=== PATIENT | female | born 1940 | race Caucasian/White ===

== ENCOUNTER 2016-11-25 10:34 | Outpatient (CLI) | payer MEDICARE, OTHER ==
--- NOTE | 2016-11-25 16:34 | PET ---
PET CT FROM THE SKULL BASE THROUGH MID THIGHS: INDICATION: History of metastatic disk tumor. RADIOPHARMACEUTICAL: 11.24 mCi of F18-FDG IV. TECHNIQUE: PET CT images were obtained from the skull base through the mid thighs following introduction of the radiopharmaceutical IV. CT images were obtained for attenuation correction purposes only. Compari sons are made with the recent PET CT dated 08/19/[address] of the abdomen and pelvis dated . FINDINGS: The biodistribution for the examination appears acceptable. HEAD AND NECK: No head and neck hypermetabolic soft tissue mass or lymphadenopathy is evident. THORAX: The moderate left pleural effusion is stable. There is mild left basilar atelectasis. No hypermeta bolic activity is associated with the pleural effusion. ABDOMEN AND PELVIS: The nonhypermetabolic soft tissue nodule seen within the central mesentery is slightly smaller in si ze, measuring just over 3 cm, with a peak SUV uptake of 2.34 and a mean value of 1.79. The partially calcified soft tissue mass seen within the anterior right pelvis measures 7.37 x 4.57 with a peak uptake of 1.70 and mean uptake of 1.42. No new soft tissue mass is evident. A small am ount of free fluid is seen within the pelvis. There are scattered diverticula involving the colon. There are scattered vascular calcifications. The gallbladder is surgically absent. SKIN AND OSSEOUS STRUCTURES: No hypermetabolic skin or osseous lesion is evident. IMPRESSION: 1. Stable PET evaluation. 2. The nonhypermetabolic soft tissue nodules seen within the central mesentery and within the anter ior right hemipelvis are slightly smaller than on a comparison examination. 3. Stable moderate left pleural effusion. 4. No hypermetabolic skin or osseous lesion identified. POS: [facility]
== END 2016-11-25 10:35 | disposition home or self-care (01) ==
LOC: PET 10:34
PROVIDERS: ATTEND Internal Medicine Hematology & Oncology
DX: R19.00 Intra-abdominal and pelvic swelling, mass and lump, unspecified site (principal); J90 Pleural effusion, not elsewhere classified
CPT/HCPCS: 78815; A9552

== ENCOUNTER 2017-04-09 08:18 | Outpatient (CLI) | payer MEDICARE, OTHER ==
--- NOTE | 2017-04-09 12:15 | PET ---
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 Patient also farrell s a history of left breast cancer, treated in 1996. Exam requested for restaging. Patient is currentl y on chemo pill (Gleevec). TECHNIQUE: PET scanning with CT attenuation correction was performed from the base of the brain through the prox imal thighs following the intravenous administration of 12.6 mCi F18-FDG in the left antecubital latisha a. COMPARISON: PET CT dated 11/25/16. FINDINGS: There is physiologic activity in the GI and tracts, and visualized portions of the brain. No solis hypermetabolism is noted in the neck, chest, abdomen, pelvis, or inguinal regions. No abnorm al FDG localization is seen in the soft tissue nodule in the central mesentery or the partially calci fied soft tissue mass in the anterior right pelvis. No hypermetabolic pulmonary nodules, liver, adrenal, or skeletal lesions are seen. The CT scan used for attenuation correction demonstrates a moderate sized left pleural effusion which has increased in size since the previous study. A tiny amount of free fluid is noted in the pelvis. There is sigmoid diverticulosis. IMPRESSION: 1. No evidence of hypermetabolic lesions. 2. Moderate sized left pleural effusion with interval increase in size since 11/25/16. POS: [facility]
== END 2017-04-09 08:19 | disposition home or self-care (01) ==
LOC: PET 08:18
PROVIDERS: ATTEND Internal Medicine Hematology & Oncology
DX: C49.4 Malignant neoplasm of connective and soft tissue of abdomen (principal); J90 Pleural effusion, not elsewhere classified
CPT/HCPCS: 78815; A9552

== ENCOUNTER 2017-06-24 20:41 | Inpatient (IN) | payer MEDICARE, OTHER ==
[2017-06-24 21:27] LABS: ALT (SGPT) 20 U/L (8-55); AST (SGOT) 28 U/L (5-34); Albumin 4.9 g/dL (3.4-4.8); Alkaline Phosphatase 65 U/L (40-150); Anion Gap 15 mmol/L (10-20); BUN (Urea Nitrogen) 15 mg/dL (9.8-20.1); Bilirubin, Total 0.5 mg/dL (0.2-1.2); CK (CPK) 135 U/L (29-168); Calc. Creatinine Clearance 0 mL/min (70-130); Calcium 10.1 mg/dL (7.8-10.44); Carbon Dioxide 23 mmol/L (23-31); Chloride 104 mmol/L (98-107); Estimated GFR-MDRD 39; Glucose 109 mg/dL (83-110); Potassium 3.5 mmol/L (3.5-5.1); Protein, Total 7.9 g/dL (6.0-8.3); Sodium 138 mmol/L (136-145)
--- NOTE | 2017-06-24 21:31 | RAD ---
PORTABLE FRONTAL CHEST RADIOGRAPH 06/24/17 COMPARISON: 01/22/16 HISTORY: Chest pain. FINDINGS: There is dense pleural and parenchymal opacity within the left lung base, which appears similar when compared to a PET CT performed 04/09/17. Right lung appears clear. No pneumothorax is evident. Heart a nd mediastinal contours are grossly unremarkable, partially obscured by dense opacity in the left bas e. IMPRESSION: Dense pleural and parenchymal opacity in the left lung base suggests nonspecific consolidation/colla pse and left pleural fluid. POS: [facility]
[2017-06-24 21:40] LABS: CKMB 3.9 ng/mL (0-6.6); Hemoglobin 13.7 g/dL (12.0-16.0); Lymphocytes 59 % (21-51); MDiff Complete? YES; Mean Corpuscular HGB CONC 34.8 g/dL (32.0-36.0); Mean Corpuscular Hemoglobin 34.4 pg (27.0-31.0); Mean Corpuscular Volume 98.7 fl (81.0-99.0); Mean Platelet Volume 6.8 fL (7.4-10.4); Monocytes 4 % (0-10); Neutrophil 37 % (42-75); PLT Morphology Comment Appears Adequate; Platelet Count 234 thou/uL (130-400); RBC Distribution Width 12.2 % (11.5-14.5); Red Blood Cell (RBC) Count 3.98 mill/uL (4.20-5.40); Troponin I 0.069 ng/mL (< 0.028); White Blood Cell (WBC) Count 8.3 thou/uL (4.8-10.8)
[2017-06-24] MEDS ORDERED: Ondansetron HCl/PF 4 MG/2 ML Vial IVP PRN (23:47)
[2017-06-24] MEDS ORDERED: Ondansetron ODT 4 MG TAB SL PRN (23:47)
[2017-06-24] MEDS ORDERED: Acetaminophen 325 MG TAB PO PRN (23:47)
[2017-06-25 01:05] LABS: Troponin I 0.111 ng/mL (< 0.028)
[2017-06-25] MEDS ORDERED: Acetaminophen 650 MG Suppository PR PRN (01:59)
[2017-06-25] MEDS ORDERED: Nitroglycerin 0.4 MG TAB (25 Tab Bottle) PO PRN (01:59)
[2017-06-25] MEDS ORDERED: Acetaminophen 325 MG TAB PO PRN (01:59)
[2017-06-25] MEDS ORDERED: Ondansetron HCl/PF 4 MG/2 ML Vial IVP PRN (01:59)
[2017-06-25] MEDS ORDERED: Bisacodyl 5 MG TAB PO PRN (01:59)
--- NOTE | 2017-06-25 03:09 | HP ---
DATE OF ADMISSION: 06/25/2017 PRIMARY CARE PROVIDER: Angelina Navarro M.D. CHIEF COMPLAINT: Chest pain. HISTORY OF PRESENT ILLNESS: Ms. Moise is a pleasant 76-year-old lady, who was seen at [facility] on 06/25/2017. She follows up with Dr. Cerna for irregular heartbeat. She also reports that she had a nuclear stre ss test last fall. She reports that she was having dinner around 6:30 p.m. At that time, she felt a sensation of tightn ess over the back of her right arm. It progressed to sensation of tightness over the right side of h er chest, accompanied by sensation of tightness over the back of her left arm. Subsequently, the hilario st tightness moved to retrosternal region. It lasted a couple of hours. She denies any shortness of breath or lightheadedness. She checked her blood pressures at that time and found that it was high. She also reports that her face became flushed. She denies shortness of breath, lightheadedness, na usea, or vomiting. She reports that she has chronic diarrhea that has not changed recently. She took clonidine for her blood pressure and it continued to be elevated. She came to the emergency room, because she did not have these symptoms before. The chest tightness resolved after she came to the emergency room. She cannot recall any aggravating or relieving factors for the chest tightness. It was nonexertional and nonpleuritic. Blood pressur e improved after she came to the emergency room. REVIEW OF SYSTEMS: All other systems reviewed and found to be negative. 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 PAST SURGICAL HISTORY: Hernia repair, left breast lumpectomy, and cholecystectomy. PSYCHIATRIC HISTORY: Anxiety. FAMILY HISTORY: Significant for heart disease in several family members. SOCIAL HISTORY: Rare alcohol use, no tobacco use or recreational drug use. ALLERGIES: IODINATED CONTRAST. CURRENT MEDICATIONS: Atenolol 25 mg daily, amlodipine 5 mg daily, Gleevec 400 mg daily, clonidine 0. 1 mg as needed, losartan 25 mg daily. PHYSICAL EXAMINATION: GENERAL: Ms. Moise is awake and alert, not in acute distress. VITAL SIGNS: Blood pressure is 132/66 and pulse is 71. She is breathing at rate of 16 and saturatin g 95% on room air. She is afebrile. EYES: No scleral icterus. No conjunctival pallor. ENT: Moist mucosal membranes, no oropharyngeal erythema or exudates. NECK: Supple, nontender, normal range of movement. Trachea is midline. RESPIRATORY: Accessory muscles of breathing are not active. Chest wall movements are symmetric bila terally. LUNGS: Clear to auscultation without wheeze, rhonchi, or crepitations. CARDIOVASCULAR: S1 and S2 are heard, irregular. Peripheral pulses palpable. No carotid bruit, no p ericardial rub. ABDOMEN: Soft, nontender, bowel sounds are heard, no hepatomegaly, no splenomegaly. NEUROLOGIC: Cranial nerves II-XII intact. Deep tendon reflexes are 2+. LYMPHATIC: No cervical lymphadenopathy. PSYCHIATRIC: Normal mood, normal affect, patient is oriented to person, place, and time. LABORATORY DATA: Ms. Moise's labs and investigations were reviewed. I reviewed an electrocardi ogram, which showed normal sinus rhythm with premature atrial complexes and premature ventricular com plexes, no ST changes to suggest an acute coronary syndrome. I also reviewed her chest x-ray, which shows nonspecific consolidation/collapse of the left lower lobe and left-sided pleural effusion. She has normal white count, normal hemoglobin, normal platelet count, elevated creatinine of 1.31, last known creatinine 1.10 on 03/02/2017, but she had elevated creatinine prior to that, elevated albumin of 4.9, otherwise unremarkable comprehensive metabolic profile, normal CK, and indeterminate troponin I of 0.111 at 0013 hours today, trending up from 0.069 at 2101 hours yesterday. ASSESSMENT AND PLAN: Ms. Moise is a pleasant 76-year-old lady, who was seen at [facility] on 06/25/2017. Her problem list includes: 1. Chest pain: She will be admitted to the hospital for further management including telemetry dutch gabriel. We will consult Cardiology Service since she reports that she had a nuclear stress test last fall. We will continue to trend troponins. 2. History of gastrointestinal stromal tumor: Continue Gleevec. 3. Hypertension: Monitor vital signs. Titrate antihypertensives as needed. 4. Chronic renal insufficiency: Stable. Many thanks for allowing me to participate in your patient's care. Please feel free to contact me wi th any questions or concerns. LEVEL OF RISK: High. LEVEL OF COMPLEXITY: High.
[2017-06-25 04:24] LABS: #Eosinphils 0.1 thou/uL (0.0-0.7); #Lymphocytes 1.5 thou/uL (1.20-3.40); #Monocytes 0.4 thou/uL (0.11-0.59); #Neutrophils 2.8 thou/uL (1.40-6.50); %Eosinophils 2.4 % (0.0-10.0); %Lymphocytes 30.6 % (21.0-51.0); %Monocytes 7.4 % (0.0-10.0); %Neutrophils 58.5 % (42.0-75.0); Hemoglobin 11.9 g/dL (12.0-16.0); Mean Corpuscular HGB CONC 34.4 g/dL (32.0-36.0); Mean Corpuscular Hemoglobin 34.4 pg (27.0-31.0); Mean Platelet Volume 6.7 fL (7.4-10.4); Platelet Count 185 thou/uL (130-400); RBC Distribution Width 12.1 % (11.5-14.5); Red Blood Cell (RBC) Count 3.46 mill/uL (4.20-5.40); White Blood Cell (WBC) Count 4.8 thou/uL (4.8-10.8)
[2017-06-25 04:32] LABS: Anion Gap 11 mmol/L (10-20); BUN (Urea Nitrogen) 14 mg/dL (9.8-20.1); Calc. Creatinine Clearance 47 mL/min (70-130); Calcium 8.8 mg/dL (7.8-10.44); Carbon Dioxide 22 mmol/L (23-31); Chloride 109 mmol/L (98-107); Estimated GFR-MDRD 52; Glucose 104 mg/dL (83-110); Potassium 4.2 mmol/L (3.5-5.1); Sodium 138 mmol/L (136-145)
[2017-06-25 04:39] LABS: Troponin I 0.088 ng/mL (< 0.028)
[2017-06-25] MEDS ORDERED: Lorazepam 0.5 MG TAB PO PRN ×2 (08:55→08:59)
[2017-06-25] MEDS ORDERED: Non-Formulary Item 1 EACH (Losartan Potassium [Losartan Potassium] 50 MG) PO SCH (09:00)
[2017-06-25] MEDS ORDERED: Aspirin 325 MG TAB PO SCH (09:00)
[2017-06-25] MEDS ORDERED: Enoxaparin Sodium 40 MG/0.4 ML SYRINGE SC SCH (09:00)
[2017-06-25] MEDS: Aspirin 325 MG TAB PO SCH (10:06)
[2017-06-25] MEDS ORDERED: Enoxaparin Sodium 80 MG/0.8 ML SYRINGE SC SCH (12:30)
[2017-06-25] MEDS ORDERED: Communication Order-Pharmacy FS SCH (13:15)
--- NOTE | 2017-06-25 13:43 | CON ---
DATE OF CONSULTATION: 06/25/2017 REASON FOR CONSULTATION: Increased troponin, non-ST elevation myocardial infarction. HISTORY OF PRESENT ILLNESS: Ms. Moise is a delightful 76-year-old woman. She said she was at h ome feeling okay yesterday when she had the onset of right arm pain. The discomfort later spread acr oss her chest and into the left arm. She came here, she was tachycardic. It looks like she had sinu s tachycardia with frequent PACs. Her troponin levels were mildly elevated as will be outlined below . Her chest discomfort resolved and she is feeling better now. PAST MEDICAL HISTORY: She has a history of coronary artery disease. She had catheterization by Dr. Merrill in 2007 following an abnormal stress test. She had a 50% lesion in the LAD, proximal to mi d. Intravascular ultrasound was done and it did not appear to be flow limiting. The patient has done well since then. The patient's other past history is she has a history of GIST tumor of the small intestine and has un dergone successful therapy and that is currently not active, in remission. She tells me she goes to [facility] for that. She also has a history of "IODINE allergy," but talking to her I am not really sure she is really all ergic as opposed that she had some renal failure after following a contrast exposure. From the sound of it, it sounds like she may have been dehydrated, then got contrast, and then had renal failure, w hich gradually resolved. The patient's current renal function is mildly depressed when she came in, but normal this morning. SOCIAL HISTORY: No alcohol or tobacco. She has a , who is very supportive of her. MEDICATIONS: 1. Clonidine. 2. Atenolol 50 mg a day. 3. Amlodipine 2.5 mg a day. 4. Losartan 100 mg a day. 5. Lorazepam. 6. I believe she is also on a statin. We will need to double check that with her. PHYSICAL EXAMINATION: GENERAL EXAMINATION: She is a pleasant elderly woman in no distress. VITAL SIGNS: Blood pressure 160/70, it was transiently very high last night, and it is 126/66 this m orning; pulse 68 and regular. HEENT: Eyes: Sclerae nonicteric. Mouth: Mucous membranes moist. NECK: Supple, no lymphadenopathy. LUNGS: Clear, no wheezing, rales, or rhonchi. CARDIAC: Normal S1, normal S2. There is no murmur, rub, or gallop. ABDOMEN: Soft, nontender, no hepatosplenomegaly. EXTREMITIES: Warm, dry, no clubbing or cyanosis. There is no edema. Peripheral pulses are intact. SKIN: Warm and dry. LABORATORY AND X-RAY FINDINGS: EKG last night, sinus rhythm with PACs, frequent, some of the beats l ooked like aberrant conduction. Also, PVC noted. Troponin level was increased at peak 0.111, which would be in the abnormal range. There is also a lower level before and after that peak. ASSESSMENT: 1. Coronary artery disease. 2. Non-ST elevation myocardial infarction. 3. "? Iodine allergy" versus adverse response to iodine, I think more likely to be the latter. PLAN: Recommend she undergo cardiac catheterization. Discussed risks of stroke, heart attack, iodin e allergy, loss of blood supply to the leg or kidney, stent thrombosis, stent restenosis. She unders tands and wishes to proceed. As a precaution, we will begin intravenous fluid administration tonight and continue it before and after the procedure and try to minimize contrast exposure in terms of gabo unt of contrast. In view of the increased troponin associated with prolonged episode of angina, I th ink it is appropriate to proceed to catheterization and interventional therapy if needed.
[2017-06-25] MEDS ORDERED: IMATINIB MESYLATE 400 MG PO SCH (17:45)
[2017-06-25] MEDS ORDERED: predniSONE 20 MG TAB PO SCH ×2 (18:00→23:55)
[2017-06-25] MEDS ORDERED: Loperamide HCl 2 MG CAP PO SCH (21:00)
[2017-06-25] MEDS ORDERED: Amlodipine 5 MG TAB PO SCH (21:00)
[2017-06-25] MEDS ORDERED: Atenolol 50 MG TAB PO SCH (21:00)
[2017-06-25] MEDS: Sodium Chloride 0.9% 1,000 ML IV SCH ×2 (21:21→22:10)
[2017-06-26 05:11] LABS: Cardiac Risk 3.8 (Less than 4.5)
[2017-06-26] MEDS: Losartan 25 MG TAB PO SCH ×2 (05:49→05:54)
[2017-06-26] MEDS ORDERED: predniSONE 20 MG TAB PO SCH (06:00)
[2017-06-26] MEDS ORDERED: Diazepam 5 MG TAB PO SCH (07:00)
[2017-06-26] MEDS: Aspirin 325 MG TAB PO SCH (08:01)
[2017-06-26] MEDS ORDERED: Fentanyl 100 MCG/2 ML VIAL ONE (08:06)
[2017-06-26] MEDS ORDERED: Midazolam HCl 2 mg/2 ml Vial ONE (08:07)
[2017-06-26] MEDS ORDERED: Lidocaine 1% (PF) 30 ML VIAL ONE (08:07)
[2017-06-26] MEDS ORDERED: Loperamide HCl 2 MG CAP PO SCH (09:00)
[2017-06-26] MEDS ORDERED: Famotidine 20 MG TAB PO SCH (09:00)
[2017-06-26] MEDS ORDERED: Nitroglycerin 100MG/250ML BOT 250 ML ONE (09:06)
[2017-06-26] MEDS ORDERED: Nitroglycerin 0.4 MG TAB (25 Tab Bottle) SL PRN (09:37)
[2017-06-26] MEDS ORDERED: Acetaminophen/Codeine 30-300mg Tablet PO PRN ×2 (09:37)
[2017-06-26] MEDS ORDERED: traMADol HCl 50 MG TAB PO PRN (09:37)
[2017-06-26] MEDS ORDERED: Sodium Chloride 0.9% 200 ML IV SCH (09:45)
[2017-06-26 12:15] VITALS: BP 186/89; TEMP 97.5
[2017-06-26] MEDS ORDERED: Clopidogrel Bisulfate 300 MG TAB PO SCH (15:15)
--- NOTE | 2017-06-26 16:58 | PRG ---
DATE OF SERVICE: 06/26/2017 SUBJECTIVE: Ms. Moise is doing well. She underwent cardiac catheterization today that revealed the followin. Left main normal. 2. LAD 50%-60% lesion similar to the angiogram done in 2007. 3. Circumflex left dominant. There is a 90% stenosis in the ostium of the second marginal branch. The distal vessels are free of any disease. 4. Right coronary small nondominant vessel. 5. Ejection fraction of 60%. At this time, no intervention was done of the obtuse marginal branch. The stent would probably have to stent back into the main circumflex, which could jeopardize the circumflex vessel itself. At this point, we will try to treat her medically. We have added aspirin 81 mg a day, Plavix 75 mg a day fo r at least 2 months and rosuvastatin 20 mg a day. The patient had indicated she is allergic to IODIN E, but I think this is probably not allergic to iodine and more likely, she had some renal failure wi th contrast exposure previously probably when she was dehydrated. She was hydrated prior to the card iac catheterization and after the catheterization on this occasion. She will be asked to see me in t he office for followup with the above listed medicine changes.
[2017-06-26] MEDS ORDERED: IMATINIB MESYLATE 400 MG PO SCH (17:00)
[2017-06-26] MEDS ORDERED: Rosuvastatin 20 MG TAB PO SCH (21:00)
--- NOTE | 2017-06-27 02:21 | DIS ---
DATE OF ADMISSION: 06/25/2017 DATE OF DISCHARGE: 06/26/2017 DISCHARGE DIAGNOSES: 1. Non-ST elevation myocardial infarction. 2. Chest pain. 3. Gastrointestinal stromal tumor. HOSPITAL COURSE: The patient is a very pleasant 76-year-old female who presented to the hospital wit h some chest discomfort and was found to have some mild elevated troponins. The patient was seen by Cardiology and underwent a cardiac catheterization and no intervention at this time. The patient marcie l be medically managed. She will be discharged home on a few medication adjustments and follow up wi th her PCP and Cardiology as outpatient. PHYSICAL EXAMINATION: VITAL SIGNS: Temperature of 98.0, 76, 12 respirations, oxygen 97, blood pressure is 159/76. GENERAL: She is awake, alert, oriented x3, does not appear in distress. CARDIOVASCULAR: S1, S2 present. No murmurs, rubs or gallops. ABDOMEN: Soft, nontender. Bowel sounds are present x2. EXTREMITIES: No edema. Pedal pulses are present x2. Right groin site appears intact. Pedal pulses are present to her right foot and her left foot. DISCHARGE MEDICATIONS: Are as follows, 1. Aspirin 81 mg daily. 2. Plavix 75 mg daily, which is new. 3. Gleevec 400 mg 1 p.o. q.p.m. 4. Nitroglycerin 0.4 sublingual every 5 minutes p.r.n. 5. Rosuvastatin 20 mg p.o. at bedtime. 6. Atenolol 25 mg at bedtime. 7. Clonidine 0.1 at bedtime p.r.n. 8. Amlodipine 2.5 mg at bedtime. 9. Losartan 100 mg p.o. daily. Again, the patient will follow up with PCP and Cardiology as outpatient.
[2017-06-27] MEDS ORDERED: Clopidogrel Bisulfate 75 MG TAB PO SCH (09:00)
== END 2017-06-26 16:41 | disposition home or self-care (01) | DRG 281 ==
LOC: ERS 20:41 → 2SW 22:52 → OBSVTOIN 06-25 14:05
PROVIDERS: ADMIT Internal Medicine; ATTEND Internal Medicine
PROC: 4A023N7 Measurement of Cardiac Sampling and Pressure, Left Heart, Percutaneous Approach (ICD-10-PCS; principal; 2017-06-26)
PROC: B2111ZZ Fluoroscopy of Multiple Coronary Arteries using Low Osmolar Contrast (ICD-10-PCS; 2017-06-26)
DX: I21.4 Non-ST elevation (NSTEMI) myocardial infarction (principal); C49.A3 Gastrointestinal stromal tumor of small intestine; M19.90 Unspecified osteoarthritis, unspecified site; I12.9 Hypertensive chronic kidney disease with stage 1 through stage 4 chronic kidney disease, or unspecified chronic kidney disease; N18.9 Chronic kidney disease, unspecified; I25.10 Atherosclerotic heart disease of native coronary artery without angina pectoris
CPT/HCPCS: 36415; 71045; 76942; 80048; 80053; 80061; 82553; 84484; 85025; 93005; 93458; 93798; 99152; 99153; A4216; C1769; J1644; J1650; J2001; J2250; J3010; J7506

== ENCOUNTER 2017-11-24 17:29 | Emergency (ER) | payer MEDICARE, OTHER ==
[2017-11-24 18:18] LABS: #Eosinphils 0.1 thou/uL (0.0-0.7); #Monocytes 0.5 thou/uL (0.11-0.59); #Neutrophils 4.1 thou/uL (1.40-6.50); %Basophils 0.6 % (0.0-1.0); %Lymphocytes 29.1 % (21.0-51.0); %Monocytes 7.6 % (0.0-10.0); %Neutrophils 60.7 % (42.0-75.0); Mean Corpuscular HGB CONC 33.2 g/dL (32.0-36.0); Mean Corpuscular Hemoglobin 33.6 pg (27.0-31.0); Platelet Count 255 thou/uL (130-400); RBC Distribution Width 11.8 % (11.5-14.5); Red Blood Cell (RBC) Count 3.56 mill/uL (4.20-5.40); White Blood Cell (WBC) Count 6.8 thou/uL (4.8-10.8)
[2017-11-24 18:41] LABS: ALT (SGPT) 14 U/L (8-55); AST (SGOT) 21 U/L (5-34); Albumin 4.5 g/dL (3.4-4.8); Alkaline Phosphatase 59 U/L (40-150); Anion Gap 13 mmol/L (10-20); BUN (Urea Nitrogen) 10 mg/dL (9.8-20.1); Bilirubin, Total 0.5 mg/dL (0.2-1.2); CK (CPK) 121 U/L (29-168); Calc. Creatinine Clearance 0 mL/min (70-130); Calcium 9.5 mg/dL (7.8-10.44); Carbon Dioxide 22 mmol/L (23-31); Chloride 105 mmol/L (98-107); Estimated GFR-MDRD 38; Globulin 2.9 g/dL (2.4-3.5); Glucose 103 mg/dL (83-110); Potassium 3.5 mmol/L (3.5-5.1); Protein, Total 7.4 g/dL (6.0-8.3); Sodium 136 mmol/L (136-145)
[2017-11-24 18:47] LABS: CKMB 3.1 ng/mL (0-6.6); Troponin I Less than 0.010 ng/mL (< 0.028)
[2017-11-24 19:23] LABS: Bilirubin Negative (Negative); Blood, Urine Negative (Negative); Clarity CLEAR (Clear); Glucose, Urine (Dipstick) Negative (Negative); Leukocyte Negative (Negative); Nitrite Negative (Negative); Protein, Urine (Dipstick) Negative (Neg-Trace); Specific Gravity, Urine 1.005 (1.002-1.036); Urobilinogen 0.2 mg/dL (0.2-1.0); pH, Urine 5.5 (5.0-9.0)
--- NOTE | 2017-11-24 19:37 | CT ---
CHEST CT NONCONTRAST 11/24/17 INDICATION: Abnormal radiographic opacification. History of shortness of breath. Reference made to preceding chest radiograph, same date. FINDINGS: There is a large volume left pleural effusion with adjacent consolidation of the compressed left pulm onary parenchyma which may be on the basis of compressive atelectasis and/or component of pneumonia. There is subpleural bands evident within the right lung as well as punctate subpleural nodularity, n onspecific. There is no pneumothorax. Regional soft tissues including vasculature and lymph nodes are limited in assessment by noncontrast technique. There is prominent vascular calcification at the lev el of the aortic arch, in addition to scattered areas of vascular disease. IMPRESSION: Large left pleural effusion with adjacent consolidation of the left pulmonary parenchyma. Subpleural bands and punctate nodularity present within the right lung. Recommend pulmonary medicine consultation for further care. POS: [facility]
== END 2017-11-24 20:27 | disposition home or self-care (01) ==
LOC: ERS 17:29
DX: J90 Pleural effusion, not elsewhere classified (principal); I10 Essential (primary) hypertension; F41.9 Anxiety disorder, unspecified; Z79.899 Other long term (current) drug therapy
CPT/HCPCS: 71250; 80053; 81003; 82553; 83880; 84484; 85025; 93005

== ENCOUNTER 2017-11-26 07:38 | Day surgery (SDC) | payer MEDICARE, OTHER ==
--- NOTE | 2017-11-26 12:03 | OP ---
DATE OF PROCEDURE: 11/26/2017 Ms. Moise is a 77-year-old female who has been followed for pleural effusion, felt to be related to Gleevec. She presented with more shortness of breath in the office. PHYSICAL EXAMINATION: GENERAL: On exam, she was in no distress. VITAL SIGNS: Heart rate is in the 70s, respiratory rate was 18, oximetry is 96 on room air. LUNGS: She had absent breath sounds assisted up on the left. HEART: Regular rhythm. ABDOMEN: Soft. EXTREMITIES: Without asymmetry. IMAGING: Chest radiograph showed an increased pleural effusion compared to her last film. IMPRESSION AND PLAN: Left pleural effusion, possibly related to Gleevec, but it is probably time to do a thoracentesis. She agreed with the procedure. The risks of bleeding, infection, lung collapse were explained to the patient. PROCEDURE: The patient was placed in sitting position. Left posterior hemithorax was prepped with c hlorhexidine. Five mL of lidocaine was used to anesthetize the skin and the pleura. A small incision was made with a #11 blade. A [id number] 8 Bhutanese catheter was inserted in the pleural space and 1300 mL of clear yellow pleural fluid was evacuated. It will be sent for the appro priate studies. She tolerated the procedure well. She was observed for an hour and is being dischar [facility] home.
[2017-11-26 13:44] LABS: BF Color Yellow; BF RBC Count - Manual 220 /cumm; BF WBC/Nonhematics Ct. - Manua 129 /cumm; Body Fluid Source PLEURAL FLUID; Clarity Hazy (Clear); Tube # EDTA
[2017-11-26 13:54] LABS: BF Segmented Neutrophils 19 %; Cell Count Non Hematic 69 %; Lymphocytes 12 %
== END 2017-11-26 11:38 | disposition home or self-care (01) ==
LOC: SDC/OP 07:38
PROVIDERS: ATTEND Internal Medicine Critical Care Medicine
PROC: 0W9B3ZZ Drainage of Left Pleural Cavity, Percutaneous Approach (ICD-10-PCS; principal; 2017-11-26)
DX: J90 Pleural effusion, not elsewhere classified (principal); Z79.899 Other long term (current) drug therapy; Z91.041 Radiographic dye allergy status
CPT/HCPCS: 32554; 82945; 83615; 84157; 85060; 87070; 87205; 88112; 88305; 89051; J1642

== ENCOUNTER 2017-12-22 12:39 | Outpatient (CLI) | payer MEDICARE, OTHER ==
--- NOTE | 2017-12-22 14:10 | RAD ---
CHEST TWO VIEWS: HISTORY: Dyspnea. COMPARISON: Chest CT from 11/24/2017. Chest x-ray from 06/24/2017. FINDINGS: A single view of the chest shows a normal sized cardiomediastinal silhouette. There is moderate left pleural effusion. Adjacent atelectasis is seen. The fluid has increased compared to the chest x-ra y but is stable compared to the chest CT. IMPRESSION: Stable moderate to large left pleural effusion. POS: [facility]
== END 2017-12-22 12:40 | disposition home or self-care (01) ==
LOC: RAD 12:39
PROVIDERS: ATTEND Internal Medicine Critical Care Medicine
DX: R06.00 Dyspnea, unspecified (principal); J90 Pleural effusion, not elsewhere classified
CPT/HCPCS: 71046

== ENCOUNTER 2017-12-29 11:35 | Outpatient (CLI) | payer MEDICARE, OTHER ==
--- NOTE | 2017-12-29 15:56 | PET ---
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 Patient also a history of left breast cancer, treated in 1996. Patient is currently on a chemo pill (Gleevec). Exam is requested for restaging. TECHNIQUE: PET scanning with CT attenuation correction is performed from the base of the brain through the proxi mal thighs following the intravenous administration of 9.3 mCi F18-FDG in the right hand. Imaging was performed after an uptake interval of 55 minutes. COMPARISON: PET CT of 04/09/17. FINDINGS: There is mildly increased FDG localization in the partially calcified soft tissue mass in the right l ower abdominal/upper pelvic mass with a SUV of 2.6. The partially calcified mass in the lower anterio r pelvis demonstrates no hypermetabolic activity (SUV 1.6). No solis hypermetabolism is noted in the neck, chest, abdomen, pelvis, or inguinal regions. No hyperm etabolic pulmonary nodules, liver, adrenal, or skeletal lesions are seen. There is physiologic activity in the GI and tracts, and the visualized portions of the brain. There has been interval increase in size of the left pleural effusion since the previous study. Sigmo id diverticulosis is again seen. No right pleural effusion or ascites seen. IMPRESSION: 1. Interval increase in size of the left pleural effusion since 04/09/17. 2. Mild hypermetabolic activity in the lower abdominal/upper pelvic mass, new since 04/09/17. POS: [facility]
== END 2017-12-29 11:36 | disposition home or self-care (01) ==
LOC: PET 11:35
PROVIDERS: ATTEND Internal Medicine Hematology & Oncology
DX: C49.A0 Gastrointestinal stromal tumor, unspecified site (principal); R19.00 Intra-abdominal and pelvic swelling, mass and lump, unspecified site; C79.9 Secondary malignant neoplasm of unspecified site; J90 Pleural effusion, not elsewhere classified
CPT/HCPCS: 78815; A9552

== ENCOUNTER 2018-01-05 09:55 | Outpatient (CLI) | payer MEDICARE, OTHER ==
--- NOTE | 2018-01-05 10:53 | RAD ---
TWO VIEW CHEST: History: Dyspnea. Comparison: 12-22-17 FINDINGS: Large left pleural effusion is again seen, similar in size to the prior study. Right lung remains aer ated and clear. Vascular markings within normal range and stable. Heart size appears mildly prominent and stable. Osseous structures unremarkable. IMPRESSION: Large left pleural effusion again noted. No evidence of significant change from 12-22-17. POS: [facility]
== END 2018-01-05 09:56 | disposition home or self-care (01) ==
LOC: RAD 09:55
PROVIDERS: ATTEND Internal Medicine Critical Care Medicine
DX: R06.00 Dyspnea, unspecified (principal); J90 Pleural effusion, not elsewhere classified
CPT/HCPCS: 71046

== ENCOUNTER 2018-01-20 13:47 | Outpatient (CLI) | payer MEDICARE, OTHER ==
[2018-01-20 14:59] LABS: Hemoglobin 10.9 g/dL (12.0-16.0); Mean Corpuscular HGB CONC 33.2 g/dL (32.0-36.0); Mean Corpuscular Hemoglobin 33.4 pg (27.0-31.0); Mean Platelet Volume 6.5 fL (7.4-10.4); Platelet Count 240 thou/uL (130-400); RBC Distribution Width 12.5 % (11.5-14.5); Red Blood Cell (RBC) Count 3.28 mill/uL (4.20-5.40); White Blood Cell (WBC) Count 5.2 thou/uL (4.8-10.8)
[2018-01-20 15:28] LABS: Anion Gap 11 mmol/L (10-20); BUN (Urea Nitrogen) 15 mg/dL (9.8-20.1); Calc. Creatinine Clearance 0 mL/min (70-130); Calcium 8.9 mg/dL (7.8-10.44); Carbon Dioxide 25 mmol/L (23-31); Chloride 100 mmol/L (98-107); Estimated GFR-MDRD 45; Glucose 97 mg/dL (83-110); Potassium 4.1 mmol/L (3.5-5.1); Sodium 132 mmol/L (136-145)
--- NOTE | 2018-01-20 20:13 | EKG ---
Test Reason : Blood Pressure : / mmHG Vent. Rate : 075 BPM Atrial Rate : 075 BPM P-R Int : 136 ms QRS Dur : 076 ms QT Int : 360 ms P-R-T Axes : 053 048 -31 degrees QTc Int : 402 ms Normal sinus rhythm Nonspecific T wave abnormality Abnormal ECG When compared with ECG of 24-NOV-2017 17:55, Nonspecific T wave abnormality, worse in Inferior leads Nonspecific T wave abnormality now evident in Lateral leads Confirmed by COURTNEY CUNNINGHAM, SClaudia ([id number]) on 01/20/2018 8:12:53 PM Referred By: GALILEO Confirmed By:DR. Saniya VALDEZ MD
== END 2018-01-20 13:48 | disposition home or self-care (01) ==
LOC: LABBT 13:47
PROVIDERS: ATTEND Thoracic Surgery (Cardiothoracic Vascular Surgery)
DX: Z01.818 Encounter for other preprocedural examination (principal); C49.A2 Gastrointestinal stromal tumor of stomach; K80.20 Calculus of gallbladder without cholecystitis without obstruction
CPT/HCPCS: 80048; 85027; 93005; 93010

== ENCOUNTER 2018-01-21 07:35 | Inpatient (IN) | payer MEDICARE, OTHER ==
[2018-01-21] MEDS ORDERED: CEFAZOLIN 2 GM/50 ML BAG ONE (08:46)
[2018-01-21] MEDS ORDERED: Midazolam HCl 2 mg/2 ml Vial ONE (09:53)
[2018-01-21] MEDS ORDERED: Fentanyl 100 MCG/2 ML VIAL ONE ×5 (10:16→13:11)
[2018-01-21] MEDS ORDERED: Talc Infusion/Pleuradesis 4 GM BOT ONE (10:30)
[2018-01-21] MEDS ORDERED: Lidocaine 1% PF 5 ML VIAL ONE (11:51)
[2018-01-21] MEDS ORDERED: Dexamethasone 20 MG/5 ML VIAL ONE (11:51)
[2018-01-21] MEDS ORDERED: Glycopyrrolate 0.2 MG/ML 5 ML SYRINGE ONE (11:51)
[2018-01-21] MEDS ORDERED: PROPOFOL 200 MG/20 ML VIAL ONE (11:51)
[2018-01-21] MEDS ORDERED: PHENYLEPHRINE-NS 100 MCG/ML 10 ML SYRINGE ONE (11:51)
[2018-01-21] MEDS ORDERED: Ondansetron PF 4 MG/2 ML Vial ONE (11:51)
[2018-01-21] MEDS ORDERED: ePHEDrine/0.9% NaCl/PF SYRINGE 50 mg/10 ml ONE (11:51)
[2018-01-21] MEDS ORDERED: Bupivacaine HCl 0.5%/Epinephrine 1:200,000/PF 30 ml Vial ONE (12:07)
[2018-01-21] MEDS ORDERED: Ondansetron HCl/PF 4 MG/2 ML Vial IVP PRN (12:25)
[2018-01-21] MEDS ORDERED: Promethazine HCl 25 MG/ML VIAL SLOW IVP PRN (12:25)
[2018-01-21] MEDS ORDERED: Promethazine HCl 25 MG/ML VIAL IM PRN ×2 (12:25→14:41)
--- NOTE | 2018-01-21 13:51 | RAD ---
SINGLE VIEW CHEST: Date: 01/21/18 COMPARISON: 01/05/18. HISTORY: Status post thoracotomy. FINDINGS: Single view of the chest shows an enlarged cardiomediastinal silhouette. Two left-sided chest tubes a re seen. The previously seen large left pleural effusion has been evacuated. No pneumothorax is seen. IMPRESSION: Status post left thoracotomy without evidence of complication. POS: [facility]
[2018-01-21] MEDS ORDERED: Nitroglycerin 0.4 MG TAB (25 Tab Bottle) SL PRN (14:41)
[2018-01-21] MEDS ORDERED: Lorazepam 0.5 MG TAB PO PRN (14:41)
[2018-01-21] MEDS ORDERED: Clopidogrel Bisulfate 75 MG TAB PO SCH (14:41)
[2018-01-21] MEDS ORDERED: Loperamide HCl 2 MG CAP PO PRN (14:53)
[2018-01-21] MEDS: CEFAZOLIN 2 GM/50 ML BAG IVPB SCH (15:06)
[2018-01-21] MEDS ORDERED: HYDROcodone/Acetaminophen 5/325 mg Tablet ONE (15:20)
[2018-01-21] MEDS: HYDROcodone/Acetaminophen 5/325 mg Tablet PO PRN ×2 (15:21→19:59)
[2018-01-21] MEDS: Sodium Chloride 0.9% 1,000 ML IV SCH (15:23)
--- NOTE | 2018-01-21 19:27 | HP ---
HISTORY OF PRESENT ILLNESS: Ms. Moise is a 77-year-old woman with a history of breast cancer. She recently underwent a left thoracentesis and evacuation of 1300 mL of clear yellow fluid. Pathology on the fluid showed only reactive mesothelial cells and macrophages. She has been on Gleevec and a concern was this was a Gleevec associated pleural effusion, but there is also a concern that this could be malignant. I have been asked to see her for thoracoscopy, pleural biopsies, and pleurodesis. PAST MEDICAL HISTORY: 1. Remote history of breast cancer 2. History of GIST tumor of the small intestine on [place] 3. Coronary artery disease. 4. Hypertension. 5. Plantar fasciitis. 6. Arthritis. 7. Gout. PAST SURGICAL HISTORY: 1. Hernia repair in 1957. 2. Left and right lumpectomy in 1975. 3. Rectal muscle repair in 2007. 4. Cholecystectomy. ALLERGIES: IODINE. SOCIAL HISTORY: She is a nonsmoker. She occasionally uses alcohol. PHYSICAL EXAMINATION: GENERAL: This is a diminutive woman without complaint other than being short of breath. NECK: Supple without bruit. CHEST: Clear bilaterally with depressed left sided breath sounds. HEART: Rhythm is regular without murmur. ABDOMEN: Soft and nontender. EXTREMITIES: No edema. ASSESSMENT AND PLAN: Recurrent large left pleural effusion, for thoracoscopy, pleurodesis, and drainage. Job ID: [id number] MTDD
[2018-01-21 19:41] VITALS: BMI 25.0
--- NOTE | 2018-01-21 19:46 | OP ---
DATE OF PROCEDURE: 01/21/2018 PREOPERATIVE DIAGNOSIS: Recurrent left pleural effusion in the setting of history of breast cancer and Gleevec use for gastrointestinal stromal tumor. PROCEDURE PERFORMED: Left thoracoscopy with pleural biopsy, evacuation of pleural effusion, mechanical and chemical pleurodesis, and drainage. DRAIN: 24-Uzbek chest tube x2. SPECIMENS: Left pleural biopsy x2. DESCRIPTION OF PROCEDURE: After consent was obtained, the patient was brought to the operating room and placed in supine position on the operating table. Appropriate central line was placed and general endotracheal anesthesia induced. The patient was placed in right lateral decubitus position. Joints were appropriately padded. SCDs were used. Left chest wall was prepped and draped in usual sterile fashion. Skin incision for 2 ports was made, one in the anterior axillary line and one just below the scapular tip. Thoracoscope was inserted and 2200 mL of clear straw-colored fluid was evacuated. The pleura was fairly normal in appearance. It was slick, but no nodular areas. 2 random areas of pleural biopsy were then taken with approximately a centimeter of pleura taken at each part. Pleura was then mechanically abraded throughout. Talc was then infused within the incision. Two 24-Uzbek chest tubes were placed to the anterior port and secured to the skin. Posterior port was then closed in layers. 0.5% Marcaine was used to block her ribs and a field block around the chest tubes. The patient tolerated the procedure well, was awakened, extubated, and transferred to the recovery room in stable condition. Job ID: [id number]
[2018-01-21] MEDS: Amlodipine 5 MG TAB PO SCH (19:57)
[2018-01-21] MEDS: Atenolol 50 MG TAB PO SCH (19:58)
[2018-01-21] MEDS: Rosuvastatin 20 MG TAB PO SCH (19:59)
[2018-01-21] MEDS ORDERED: Lorazepam 1 MG TAB PO PRN (23:15)
[2018-01-22] MEDS: HYDROcodone/Acetaminophen 5/325 mg Tablet PO PRN ×3 (00:10→20:04)
[2018-01-22] MEDS: CEFAZOLIN 2 GM/50 ML BAG IVPB SCH ×2 (00:11→07:51)
[2018-01-22] MEDS: Sodium Chloride 0.9% 1,000 ML IV SCH ×3 (01:23→20:03)
[2018-01-22 06:07] LABS: #Basophils 0.1 thou/uL (0.0-0.2); #Lymphocytes 0.5 thou/uL (1.20-3.40); #Monocytes 0.5 thou/uL (0.11-0.59); #Neutrophils 9.5 thou/uL (1.40-6.50); %Basophils 0.6 % (0.0-1.0); %Eosinophils 0.1 % (0.0-10.0); %Lymphocytes 5.1 % (21.0-51.0); %Monocytes 4.6 % (0.0-10.0); %Neutrophils 89.7 % (42.0-75.0); Mean Corpuscular HGB CONC 33.4 g/dL (32.0-36.0); Mean Corpuscular Hemoglobin 33.8 pg (27.0-31.0); Mean Platelet Volume 6.7 fL (7.4-10.4); Platelet Count 221 thou/uL (130-400); RBC Distribution Width 12.4 % (11.5-14.5); Red Blood Cell (RBC) Count 3.55 mill/uL (4.20-5.40); White Blood Cell (WBC) Count 10.5 thou/uL (4.8-10.8)
[2018-01-22 06:21] LABS: Anion Gap 7 mmol/L (10-20); BUN (Urea Nitrogen) 10 mg/dL (9.8-20.1); Calc. Creatinine Clearance 58 mL/min (70-130); Calcium 8.3 mg/dL (7.8-10.44); Carbon Dioxide 23 mmol/L (23-31); Chloride 104 mmol/L (98-107); Estimated GFR-MDRD 68; Glucose 148 mg/dL (83-110); Sodium 130 mmol/L (136-145)
[2018-01-22] MEDS: Losartan 25 MG TAB PO SCH (07:50)
[2018-01-22] MEDS: Furosemide 20 MG TAB PO SCH (07:51)
--- NOTE | 2018-01-22 08:12 | RAD ---
CHEST 1 VIEW: INDICATION: History of thoracotomy. COMPARISON: Prior study dated 01/21/2018. IMPRESSION: There is worsening opacity within the left lung suspicious for either edema or pneumonia. Left-sided thoracostomy tube is unchanged. Small left basilar pneumothorax remains. Subcutaneous emphysema al yaa the left chest wall is present. Right lung is clear. Heart size is normal. No acute osseous ab normality is evident. Continued followup is recommended. POS: [facility]
--- NOTE | 2018-01-22 14:03 | PRG ---
DATE OF SERVICE: 01/22/2018 SUBJECTIVE: Nadia Moise came in yesterday for thoracoscopy with biopsies and chest tube placement, which was done successfully. She has no complaints. To refresh, we have been following the pleural effusion. It was felt to have been related to Gleevec, but her effusion has been increasing and she has been more and more symptomatic, so we are hoping that this procedure will eliminate this side effect. We will also rule out recurrence of her breast cancer in the pleural space with biopsies. OBJECTIVE: GENERAL: She is doing well today. VITAL SIGNS: She is afebrile. Heart rate 76, respiratory rate 15, oxygen saturation is 91% on 2 liters, and blood pressure 160/84. LUNGS: Decreased breath sounds on the left. HEART: Regular rhythm. ABDOMEN: Soft and nontender. DIAGNOSTIC DATA: Chest radiograph shows haziness at the left base, which I suspect is just postop atelectasis and interstitial edema related to re-expansion. She does have cough but she had the lower lobe compressed for quite some time, so I suspect this will gradually clear. I really doubt she has a pneumonia. We will suppress her cough with some Tessalon Perles. We will continue to follow. She will continue Gleevec once she leaves. 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 Job ID: [id number]
[2018-01-22] MEDS: Benzonatate 100 MG CAP PO SCH ×2 (14:53→21:13)
[2018-01-22] MEDS: Lorazepam 1 MG TAB PO PRN (14:53)
[2018-01-22] MEDS: IMATINIB MESYLATE 400 MG PO SCH ×2 (18:26)
[2018-01-22] MEDS: Atenolol 50 MG TAB PO SCH (20:06)
[2018-01-22] MEDS: Rosuvastatin 20 MG TAB PO SCH (20:06)
[2018-01-22] MEDS: Amlodipine 5 MG TAB PO SCH (20:07)
[2018-01-23] MEDS: Sodium Chloride 0.9% 1,000 ML IV SCH ×2 (06:21→14:27)
--- NOTE | 2018-01-23 07:59 | RAD ---
CHEST 1 VIEW: Date: 01/23/18 INDICATION: Status post thoracotomy. IMPRESSION: Left-sided perihilar opacities have somewhat improved, possibly reflecting resolving edema, or a slig htly improving pneumonia. There is increased opacity within the right lower lobe, consisting likely o f subsegmental atelectasis. A small right pleural effusion cannot be entirely excluded. Left-sided th oracostomy tubes are unchanged. Subcutaneous emphysema overlying the left chest wall is stable. No pn eumothorax is evident. Continued follow-up is recommended. POS: [facility]
[2018-01-23] MEDS: HYDROcodone/Acetaminophen 5/325 mg Tablet PO PRN ×2 (08:27→22:04)
[2018-01-23] MEDS: Benzonatate 100 MG CAP PO SCH ×3 (08:28→22:01)
[2018-01-23] MEDS: Furosemide 20 MG TAB PO SCH (08:30)
[2018-01-23] MEDS: Losartan 25 MG TAB PO SCH (08:31)
--- NOTE | 2018-01-23 15:09 | PRG ---
DATE OF SERVICE: 01/23/2018 SUBJECTIVE: The patient seems to be doing reasonably well. She has a chest tube in place on the left. OBJECTIVE: VITAL SIGNS: On exam, temperature 98.1, pulse 80, respirations 16, O2 saturation 93%, and blood pressure 108/66. Of note, her chest tube does have a leak. HEENT: Unremarkable. NECK: No JVD. LUNGS: She has diminished breath sounds in the left base compared to the right. CARDIAC: S1 and S2. Regular. ABDOMEN: Soft. EXTREMITIES: No edema. LABORATORY DATA: Her chest x-ray demonstrates what appears to be lack of expansion in the left lower lobe and some subcutaneous emphysema in that area. It may be that the chest tubes have pulled back to where one of the ports is outside the skin, although that is a little difficult to tell on the x-ray. ASSESSMENT: Pleural effusion. PLAN: Continuing thoracostomy tube drainage. Job ID: [id number]
[2018-01-23] MEDS: Lorazepam 1 MG TAB PO PRN (16:24)
[2018-01-23] MEDS: IMATINIB MESYLATE 400 MG PO SCH (16:25)
[2018-01-23] MEDS: Amlodipine 5 MG TAB PO SCH (21:57)
[2018-01-23] MEDS: Atenolol 50 MG TAB PO SCH (21:59)
[2018-01-23] MEDS: Rosuvastatin 20 MG TAB PO SCH (22:00)
[2018-01-24] MEDS: Sodium Chloride 0.9% 1,000 ML IV SCH ×3 (02:51→23:37)
[2018-01-24] MEDS: HYDROcodone/Acetaminophen 5/325 mg Tablet PO PRN ×2 (06:42→21:52)
[2018-01-24] MEDS: Losartan 25 MG TAB PO SCH (08:47)
[2018-01-24] MEDS: Benzonatate 100 MG CAP PO SCH ×3 (08:47→21:51)
[2018-01-24] MEDS: Furosemide 20 MG TAB PO SCH (08:48)
--- NOTE | 2018-01-24 08:49 | RAD ---
CHEST ONE VIEW: INDICATIONS: History of thoracotomy. COMPARISON: 01/23/2018 FINDINGS/IMPRESSION: There is improvement in there bilateral pleural effusions. There is some improved aeration of both l ungs. Some residual patchy opacities remain within the right lung base and left perihilar region. N o pneumothorax is evident. Subcutaneous emphysema appears to track more so along the left chest wall . Left-sided thoracostomy tubes are unchanged. POS: [facility]
[2018-01-24] MEDS: Ondansetron PF 4 MG/2 ML Vial IVP PRN (11:19)
[2018-01-24] MEDS: IMATINIB MESYLATE 400 MG PO SCH (17:08)
[2018-01-24] MEDS: Amlodipine 5 MG TAB PO SCH (21:49)
[2018-01-24] MEDS: Atenolol 50 MG TAB PO SCH (21:50)
[2018-01-24] MEDS: Rosuvastatin 20 MG TAB PO SCH (21:51)
[2018-01-25] MEDS: Ondansetron PF 4 MG/2 ML Vial IVP PRN ×2 (07:05→15:44)
--- NOTE | 2018-01-25 07:47 | RAD ---
FRONTAL RADIOGRAPH CHEST: DATE: 01/25/2018. COMPARISON: 01/24/2018. HISTORY: Evaluate chest following thoracotomy. FINDINGS: Small volume left-sided subcutaneous emphysema. Persistent pneumothorax noted in left lung base. Tw o stable left-sided chest tubes are noted. Postoperative clips are seen in the left axillary region. Heart and mediastinal contours are stable. IMPRESSION: Stable appearance of the chest as detailed above. Findings suggest a small pneumothorax in the left lung base/costophrenic angle. POS: [facility]
--- NOTE | 2018-01-25 07:49 | PRG ---
DATE OF SERVICE: 01/24/2018 SUBJECTIVE: The patient is doing reasonably well and had no complaints. OBJECTIVE: VITAL SIGNS: Temperature 98.9, pulse 69, respirations 18, saturations 95% on room air, and blood pressure 146/75. HEENT: Unremarkable. NECK: No JVD. CHEST: Diminished breath sounds, left base. Right side, clear. She has a small air leak in her chest tube. CARDIAC: S1 and S2, regular. ABDOMEN: Soft. EXTREMITIES: No edema. ASSESSMENT: Status post left thoracoscopy with chest tube placement. PLAN: Continue thoracostomy tube drainage. Job ID: [id number]
[2018-01-25] MEDS: Sodium Chloride 0.9% 1,000 ML IV SCH ×3 (08:44→19:23)
[2018-01-25] MEDS: Furosemide 20 MG TAB PO SCH (08:45)
[2018-01-25] MEDS: Benzonatate 100 MG CAP PO SCH ×3 (08:45→21:54)
[2018-01-25] MEDS: Losartan 25 MG TAB PO SCH (08:45)
[2018-01-25] MEDS: HYDROcodone/Acetaminophen 5/325 mg Tablet PO PRN (09:36)
[2018-01-25] MEDS ORDERED: Ondansetron ODT 8 MG TAB SL PRN (13:03)
[2018-01-25] MEDS ORDERED: Morphine 4 MG/ML VIAL SLOW IVP PRN (13:04)
[2018-01-25] MEDS ORDERED: Polyethylene Glycol 3350 17 GM Packet PO SCH (13:15)
[2018-01-25] MEDS ORDERED: traMADol HCl 50 MG TAB PO SCH (13:15)
[2018-01-25] MEDS ORDERED: Bisacodyl 5 MG TAB PO SCH (13:15)
--- NOTE | 2018-01-25 14:24 | PRG ---
DATE OF SERVICE: 01/25/2018 SUBJECTIVE: Ms. Moise has only had 90 mL of drainage out in the last 24 hours, 100 mL in previous 24 hours. Surprisingly she has an air leak. Dr. Ruvalcaba re-taped her chest wall this morning. She tells me that she still has an air leak. OBJECTIVE: VITAL SIGNS: She is afebrile, heart rate is 80, respiratory rate 18 , oximetry is 96% on room air, and blood pressure 138/78. LUNGS: Clear. Pleural fluid pathology was negative for malignancy. Chest radiograph shows a tiny pneumothorax in the left lung base. IMPRESSION: 1. Air leak? coming from chest wall. 2. Status post pleurodesis. 3. Status post pleural biopsies revealing no pleural malignancy. 4. Recurrent breast cancer, on Gleevec. She is clinically stable. I have encouraged her to ambulate with her . She is complaining of constipation , so I will put in an order for a laxative and MiraLAX. 5. She is also complaining of nausea. I suspect this is the hydrocodone, so I will switch her to Ultram with a p.r.n. morphine dose to see if this works a little better for her. She has a trip planned to [place] in a few weeks. Hopefully, we can get her over this and get her strength up. Job ID: [id number] [facility]
[2018-01-25] MEDS: Ondansetron ODT 8 MG TAB SL SCH ×2 (17:17→20:42)
[2018-01-25] MEDS: traMADol HCl 50 MG TAB PO SCH ×2 (17:19→23:32)
[2018-01-25] MEDS: IMATINIB MESYLATE 400 MG PO SCH (19:22)
[2018-01-25] MEDS ORDERED: Enoxaparin Sodium 40 MG/0.4 ML SYRINGE SC SCH (21:00)
[2018-01-25] MEDS: Atenolol 50 MG TAB PO SCH (21:54)
[2018-01-25] MEDS: Amlodipine 5 MG TAB PO SCH (21:55)
[2018-01-25] MEDS: Rosuvastatin 20 MG TAB PO SCH (21:57)
[2018-01-26] MEDS: Ondansetron PF 4 MG/2 ML Vial IVP PRN (01:03)
[2018-01-26] MEDS: Lorazepam 1 MG TAB PO PRN (03:30)
[2018-01-26] MEDS: Sodium Chloride 0.9% 1,000 ML IV SCH (05:37)
[2018-01-26] MEDS: traMADol HCl 50 MG TAB PO SCH ×2 (07:07→11:32)
[2018-01-26] MEDS: Metoclopramide HCl 10 MG/2 ML VIAL IVP SCH ×2 (07:14→13:44)
[2018-01-26] MEDS: Benzonatate 100 MG CAP PO SCH (08:57)
[2018-01-26] MEDS: Losartan 25 MG TAB PO SCH (08:58)
[2018-01-26] MEDS: Furosemide 20 MG TAB PO SCH (08:58)
[2018-01-26] MEDS: Ondansetron ODT 8 MG TAB SL SCH ×2 (08:59→14:19)
[2018-01-26] MEDS ORDERED: Polyethylene Glycol 3350 17 GM Packet PO SCH (09:00)
--- NOTE | 2018-01-26 10:43 | RAD ---
FRONTAL VIEW CHEST: INDICATIONS: Status post thoracotomy. Small pneumothorax. Followup. COMPARISON: Previous day. FINDINGS: The prior left thoracostomy tube has been removed. There is persistent pleural-based density at the inferior left chest, obscuring the left hemidiaphragm and the left costophrenic sulcus. Soft tissue air along the left body wall is seen. There is persistence of a minimal left basilar pneumothorax, l aterally. Patchy density at the left perihilar region remains. The right lung is clear. The cardia c silhouette is stable. IMPRESSION: Interval removal of left thoracostomy tube. Previously mentioned small left basilar pneumothorax per sists, with an adjacent pleural-based density that may reflect fluid and/or pleural thickening. Cont inued followup is advised. CODE T POS: [facility]
[2018-01-26 11:44] VITALS: BP 130/83; TEMP 97.9
--- NOTE | 2018-01-26 13:30 | PRG ---
DATE OF SERVICE: 01/26/2018 SUBJECTIVE: Nadia Moise did well overnight. Her chest tubes are out. She is in no distress. Her nausea is resolved. I suspect this was related to the hydrocodone. She denies having any chest discomfort. OBJECTIVE: VITAL SIGNS: She is afebrile. Heart rate 80, respiratory rate 16, oximetry is 97 on room air, and blood pressure 130/83. LUNGS: Clear. HEART: Regular rhythm. ABDOMEN: Soft. DIAGNOSTIC DATA: Chest radiograph is unchanged except for the chest tube being out. DISCUSSION AND PLAN: I will see her in followup in a week to 10 days and repeat a chest radiograph. She has a trip to [place] planned for the third week in January, so hopefully, she will be stable to go on her trip, I suspect she will. Job ID: [id number]
== END 2018-01-26 15:30 | disposition home or self-care (01) | DRG 167 ==
LOC: SURG A 07:35 → SURG B 15:39
PROVIDERS: ADMIT Thoracic Surgery (Cardiothoracic Vascular Surgery); ATTEND Thoracic Surgery (Cardiothoracic Vascular Surgery)
PROC: 0B9P4ZX Drainage of Left Pleura, Percutaneous Endoscopic Approach, Diagnostic (ICD-10-PCS; principal; 2018-01-21)
PROC: 0W9B40Z Drainage of Left Pleural Cavity with Drainage Device, Percutaneous Endoscopic Approach (ICD-10-PCS; 2018-01-21)
PROC: 0B9P4ZX Drainage of Left Pleura, Percutaneous Endoscopic Approach, Diagnostic (ICD-10-PCS; 2018-01-21)
DX: J90 Pleural effusion, not elsewhere classified (principal); C79.51 Secondary malignant neoplasm of bone; M10.9 Gout, unspecified; C50.919 Malignant neoplasm of unspecified site of unspecified female breast; I25.10 Atherosclerotic heart disease of native coronary artery without angina pectoris
CPT/HCPCS: 36415; 71045; 80048; 85025; 85027; 88305; 88341; 88342; 93005; 93010; 99214; G0463; G8978-GP-CJ; G8979-GP-CJ; G8980-GP-CJ; J0670; J1100; J1642; J1650; J2001; J2250; J2405; J2704; J2765; J3010

== ENCOUNTER 2018-01-30 11:05 | Emergency (ER) | payer MEDICARE, OTHER ==
--- NOTE | 2018-01-30 12:59 | RAD ---
TWO VIEWS CHEST: HISTORY: Yellow and green discharge from left chest. Shortness of breath. FINDINGS: PA and lateral views of the chest are obtained on 01/30/2018. Comparison is made to a previous exam f rom 01/26/2018. Two views demonstrate surgical clips seen in the left axillary region. Gas is seen in the soft tissu es of the left axillary region. The right hemithorax is unremarkable. Areas of scarring seen in the left lung base and left lower lobe. No definite evidence of acute pneumonia is seen. IMPRESSION: Areas of scarring in the left lung base with some gas seen in the soft tissues of the left chest wall . POS: [facility]
== END 2018-01-30 14:17 | disposition home or self-care (01) ==
LOC: ERS 11:05
DX: Z48.817 Encounter for surgical aftercare following surgery on the skin and subcutaneous tissue (principal); I10 Essential (primary) hypertension; F41.9 Anxiety disorder, unspecified; Z79.899 Other long term (current) drug therapy
CPT/HCPCS: 71046

== ENCOUNTER 2018-02-05 10:28 | Outpatient (CLI) | payer MEDICARE, OTHER ==
--- NOTE | 2018-02-05 12:21 | RAD ---
PA AND LATERAL VIEWS CHEST: Date: 02/05/18 HISTORY: Dyspnea. FINDINGS: Comparison made with exam of 01/30/18. The heart size is stable. Pleural parenchymal changes in the left lung base are again seen. Right antonia g is clear. There are mild degenerative changes in the spine. Interval resolution of subcutaneous emp hysema is seen in the left lateral chest wall. IMPRESSION: Stable chronic changes in the left basilar hemithorax. POS: [facility]
== END 2018-02-05 10:29 | disposition home or self-care (01) ==
LOC: RAD 10:28
PROVIDERS: ATTEND Internal Medicine Critical Care Medicine
DX: R06.00 Dyspnea, unspecified (principal); J98.4 Other disorders of lung
CPT/HCPCS: 71046

== ENCOUNTER 2018-03-02 09:36 | Outpatient (CLI) | payer MEDICARE, OTHER ==
[2018-03-02] MEDS ORDERED: Gadobenate Dimeglumine 529 MG/1 ML (20ML VIAL) ONE (13:05)
--- NOTE | 2018-03-02 16:47 | MRI ---
MRI BRAIN WITH AND WITHOUT CONTRAST: DATE: 03/02/2018. 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 R19.00, intra-abdominal and pelvic swelling, mass and lump, unspecified site. 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 COMPARISON: MRI of brain with and without contrast of 06/04/2016 from [facility]. TECHNIQUE: Multiple sequences obtained in axial, sagittal, and coronal planes; pre and post IV injection of gado linium-based contrast agent: 10 mL of MultiHance. FINDINGS: There is a well-circumscribed, homogeneously moderately enhancing, supratentorial extraaxial intracra nial mass abutting the right dural surface, indenting the brain parenchyma at the junction between th e posterior aspect of the right temporal lobe and the right occipital lobe. It previously measured a pproximately 1.6 x 1.4 x 1.8 cm. It currently measures approximately 2.1 x 1.7 x 2.0 cm. It is hype rintense relative to brain parenchyma and on T2WI and FLAIR. It is isointense relative to brenner matte r on precontrast T1WI. It causes a small amount of vasogenic edema in the adjacent brain parenchyma. The degree of vasogenic edema is either new or has mildly increased since 06/04/2016. There is no abnormal intraaxial mass or abnormal intraaxial enhancement. The degree of chronic ische dexter white matter changes is minimal. No restricted diffusion within the mass or brain parenchyma. V entricles are normal in size and configuration. No midline shift. No extraaxial fluid collection. No evidence of recent intraaxial hemorrhage. IMPRESSION: 1. Supratentorial right posterior meningioma has mildly grown and causes a slightly greater degree o f mild vasogenic edema upon the adjacent brain parenchyma, since the prior MRI of 06/04/2016. 2. Because of the interval growth, continued followup and/or neurosurgical consultation is recommend ed. EMILIANA Vela POS: [facility]
== END 2018-03-02 09:37 | disposition home or self-care (01) ==
LOC: MRI 09:36
PROVIDERS: ATTEND Internal Medicine Hematology & Oncology
DX: D32.0 Benign neoplasm of cerebral meninges (principal); G93.6 Cerebral edema
CPT/HCPCS: 70553; 82565; A9579

== ENCOUNTER 2018-03-03 10:01 | Outpatient (CLI) | payer MEDICARE, OTHER ==
--- NOTE | 2018-03-03 11:01 | RAD ---
TWO VIEWS CHEST: Comparison: 02-05-18 History: Pulmonary embolism. FINDINGS: Two views of the chest shows a normal sized cardiomediastinal silhouette. There appears to be airspac e opacity in the left lower lobe which may represent an infiltrate. A small left pleural effusion may also be present. IMPRESSION: Left lower lobe infiltrate with adjacent pleural effusion. POS: [facility]
== END 2018-03-03 10:02 | disposition home or self-care (01) ==
LOC: RAD 10:01
PROVIDERS: ATTEND Internal Medicine Hematology & Oncology
DX: J90 Pleural effusion, not elsewhere classified (principal); R91.8 Other nonspecific abnormal finding of lung field
CPT/HCPCS: 71046

== ENCOUNTER 2018-04-06 10:41 | Outpatient (CLI) | payer MEDICARE, OTHER ==
--- NOTE | 2018-04-06 11:28 | RAD ---
CHEST TWO VIEWS: Comparison: 03-03-18 History: Dyspnea. FINDINGS: Atherosclerosis of the aorta. Normal cardiac silhouette. The pulmonary vessels and hilum are normal. Persistent blunting of the left costophrenic angle. Chronic changes in the left lower lobe. Stable mi ld thickening of the left major fissure. No pneumothorax or osseous abnormalities. IMPRESSION: No significant interval change. POS: [facility]
== END 2018-04-06 10:42 | disposition home or self-care (01) ==
LOC: RAD 10:41
PROVIDERS: ATTEND Internal Medicine Critical Care Medicine
DX: R06.00 Dyspnea, unspecified (principal)
CPT/HCPCS: 71046

== ENCOUNTER 2018-05-11 12:16 | Outpatient (CLI) | payer MEDICARE, OTHER ==
--- NOTE | 2018-05-11 12:44 | RAD ---
TWO VIEWS CHEST: HISTORY: Dyspnea. FINDINGS: PA and lateral views of the chest are obtained on 05/11/2018. Comparison is made to previous exam fro m 04/06/2018. Two views chest demonstrate mild cardiomegaly. Areas of scarring are seen in the left lung base. Diffuse thoracic spine osteopenia is seen. The lungs are well aerated. No evidence of acute intrathoracic abnormality is seen. IMPRESSION: Left pleural scarring and minimal costophrenic angle blunting. No acute intrathoracic abnormality is seen. POS: [facility]
== END 2018-05-11 12:17 | disposition home or self-care (01) ==
LOC: RAD 12:16
PROVIDERS: ATTEND Internal Medicine Critical Care Medicine
DX: R06.00 Dyspnea, unspecified (principal); J98.4 Other disorders of lung
CPT/HCPCS: 71046

== ENCOUNTER 2018-05-18 04:56 | Outpatient (CLI) | payer MEDICARE, OTHER ==
[2018-05-18 11:32] LABS: Hemoglobin 13.2 g/dL (12.0-16.0); Mean Corpuscular HGB CONC 32.9 g/dL (32.0-36.0); Mean Corpuscular Hemoglobin 31.7 pg (27.0-31.0); Mean Corpuscular Volume 96.5 fL (78.0-98.0); Mean Platelet Volume 7.4 fL (7.4-10.4); Platelet Count 212 thou/uL (130-400); RBC Distribution Width 14.1 % (11.5-14.5); Red Blood Cell (RBC) Count 4.16 mill/uL (4.20-5.40); White Blood Cell (WBC) Count 6.4 thou/uL (4.8-10.8)
[2018-05-18 11:36] LABS: Prothrombin Time 13.3 SEC (12.0-14.7)
[2018-05-18 11:47] LABS: Anion Gap 13 mmol/L (10-20); BUN (Urea Nitrogen) 17 mg/dL (9.8-20.1); Calc. Creatinine Clearance 0 mL/min (70-130); Calcium 10.1 mg/dL (7.8-10.44); Carbon Dioxide 26 mmol/L (23-31); Chloride 107 mmol/L (98-107); Estimated GFR-MDRD 45; Glucose 101 mg/dL (83-110); Sodium 141 mmol/L (136-145)
== END 2018-05-18 04:57 | disposition home or self-care (01) ==
LOC: LABBT 04:56
PROVIDERS: ATTEND Surgery
DX: Z01.818 Encounter for other preprocedural examination (principal); D33.2 Benign neoplasm of brain, unspecified
CPT/HCPCS: 80048; 85027; 85610; 85730; 93005; 93010

== ENCOUNTER 2018-05-18 10:00 | Inpatient (IN) | payer MEDICARE, OTHER ==
[2018-05-25] MEDS ORDERED: Thrombin 5000 UNITS/5 ML VIAL ONE (06:27)
[2018-05-25] MEDS ORDERED: Bupivacaine HCl 0.5%/Epinephrine 1:200,000/PF 30 ml Vial ONE (06:27)
[2018-05-25] MEDS ORDERED: Sodium Chloride 0.9% 10 ML ONE (06:28)
[2018-05-25] MEDS ORDERED: Lidocaine 0.5%/Epinephrine 1:200,000 50 ml Vial ONE (06:55)
[2018-05-25] MEDS ORDERED: Bacitracin Zinc Ointment 30 gm TUBE ONE (06:55)
[2018-05-25] MEDS ORDERED: levETIRAcetam 500 MG/100 ML PREMIX BAG ONE (07:27)
[2018-05-25] MEDS ORDERED: levETIRAcetam 1000 MG/100 ML PREMIX BAG ONE (07:27)
[2018-05-25] MEDS ORDERED: Famotidine/PF 20 mg/2ml Vial ONE (07:27)
[2018-05-25] MEDS ORDERED: Albumin 5% 0 ML ONE (07:28)
[2018-05-25] MEDS ORDERED: Fentanyl 100 MCG/2 ML VIAL ONE (07:44)
[2018-05-25] MEDS ORDERED: Promethazine HCl 25 MG/ML VIAL IVPB PRN (10:51)
[2018-05-25] MEDS ORDERED: Acetaminophen 325 MG TAB PO PRN (10:51)
[2018-05-25] MEDS ORDERED: Labetalol HCl 100 MG/20 ML VIAL SLOW IVP PRN (10:51)
[2018-05-25] MEDS ORDERED: Lorazepam 0.5 MG TAB PO PRN (10:56)
[2018-05-25] MEDS ORDERED: Nitroglycerin 0.4 MG TAB (25 Tab Bottle) SL PRN (10:56)
[2018-05-25] MEDS ORDERED: Morphine 2 MG/ML SYRINGE SLOW IVP PRN (11:06)
[2018-05-25] MEDS ORDERED: Morphine Sulfate 2 MG/ML SYRINGE SLOW IVP PRN (11:17)
[2018-05-25] MEDS ORDERED: Promethazine HCl 25 MG/ML VIAL IM PRN (11:17)
[2018-05-25] MEDS ORDERED: PACU-Morphine 4MG/ML VIAL SLOW IVP PRN (11:17)
[2018-05-25] MEDS ORDERED: Ondansetron HCl/PF 4 MG/2 ML Vial IVP PRN (11:17)
[2018-05-25] MEDS ORDERED: Promethazine HCl 25 MG/ML VIAL SLOW IVP PRN (11:17)
[2018-05-25] MEDS ORDERED: HYDROmorphone 2 MG/ML VIAL SLOW IVP PRN (11:17)
[2018-05-25] MEDS ORDERED: Phenylephrine HCL 10 MG/ML VIAL ONE (11:53)
[2018-05-25] MEDS ORDERED: SUGAMMADEX SODIUM 500 MG/5 ML VIAL ONE (11:53)
[2018-05-25 12:47] VITALS: BMI 26.6
[2018-05-25] MEDS: Sodium Chloride 0.9% 1,000 ML IV SCH ×2 (13:31→23:59)
[2018-05-25] MEDS: HYDROcodone/Acetaminophen 7.5/325 mg Tablet PO PRN ×2 (13:37→21:20)
[2018-05-25] MEDS ORDERED: Ondansetron PF 4 MG/2 ML Vial ONE (14:24)
[2018-05-25] MEDS ORDERED: ePHEDrine 50 MG/ML VIAL ONE (14:24)
[2018-05-25] MEDS ORDERED: Rocuronium Bromide 10 MG/ML (10ML VIAL) ONE (14:24)
[2018-05-25] MEDS ORDERED: Esmolol 100 MG/10 ML VIAL ONE (14:24)
[2018-05-25] MEDS ORDERED: PHENYLEPHRINE-NS 100 MCG/ML 10 ML SYRINGE ONE (14:24)
[2018-05-25] MEDS ORDERED: Lidocaine 1% PF 5 ML VIAL ONE (14:24)
[2018-05-25] MEDS ORDERED: PROPOFOL 200 MG/20 ML VIAL ONE (14:24)
[2018-05-25] MEDS: CEFAZOLIN 2 GM in Premix Bag 1 BAG IVPB SCH (15:24)
[2018-05-25] MEDS ORDERED: Calcium Carbonate 500 MG ChewTAB PO PRN (16:23)
[2018-05-25] MEDS ORDERED: Ondansetron PF 4 MG/2 ML Vial IVP PRN (16:23)
[2018-05-25] MEDS ORDERED: Benzonatate 100 MG CAP PO PRN (16:23)
[2018-05-25] MEDS ORDERED: cloNIDine 0.1 MG TAB PO PRN (16:23)
[2018-05-25] MEDS ORDERED: Sodium Chloride 0.65% Nasal 44 ML BOT EA NARE PRN (16:23)
[2018-05-25] MEDS ORDERED: Senokot S 8.6-50 MG TAB PO PRN (16:23)
[2018-05-25] MEDS ORDERED: Bisacodyl 5 MG TAB PO PRN (16:23)
--- NOTE | 2018-05-25 17:49 | OP ---
DATE OF PROCEDURE: 05/25/2018 OPERATING ROOM: OR 12. WOUND CLASSIFICATION: Type 1 wound. BOX BENDER: Juan Driscoll PA-C PREPROCEDURE DIAGNOSIS: Enlarging left extra-axial mass at temporal region, likely meningioma. POSTPROCEDURE DIAGNOSIS: Enlarging left extra-axial mass at temporal region, likely meningioma. PROCEDURE PERFORMED: Stereotactic craniotomy of the left temporal region for resection of extra-axial mass, likely meningioma. DESCRIPTION OF PROCEDURE: After informed consent was obtained from the patient, the patient was brought to the OR. Proper patient, pause, and identification were carried out. She was placed under excellent endotracheal anesthesia and positioned with her head turned to the left and a bump under her right hemithorax to expose the right temporal region. Linear paulette was drawn out and her head secured in the [employer] hogshead stock clerk and stereotactic registration occurred with excellent accuracy. Again, hair was clipped. This area was sterilely cleansed and prepared. Lidocaine with epinephrine was infiltrated for local anesthetic. This area was again sterilely cleansed, prepared, and then draped. Stereotactic confirmation then occurred. The wound was then opened with a combination of sharp, monopolar and blunt dissection, and a small circular craniotomy was performed. There was some bleeding from a portion of the transverse sinuses. The tumor appeared to have been intimately attached both on imaging, but even more so intraoperatively. This was controlled with dissolvable Gelfoam and ceased bleeding. The dura had been eroded through as well and there was some bone invasion. I drilled this down on the underbelly of the bone flap. The tumor was then resected in its entirety, and was in portion soft and suckable and other portions firm and fibrous. This was sent for pathology and preliminary pathology was consistent with meningioma. Copious irrigation occurred. Thrombin-soaked Gelfoam was then reinforced along the sinus margin. There was no bleeding and the dissolvable Gelfoam was placed underneath the bone flap and the bone flap affixed with titanium plates and screws. Copious irrigation occurred throughout as did maximizing hemostasis. The wound was then closed in anatomic layers. The patient was then emerged from anesthesia. Job ID: [id number]
--- NOTE | 2018-05-25 18:04 | PDOC.PN ---
- Subjective Encounter Start Date: 05/25/18 Encounter Start Time: 18:03 Subjective: pt seen & examined in CCU.Awake and alert.answers all qs -: S/P left meningioma removal by NS today.IM team consulted -: PCP Alisson Navarro.pt denies any weakness/pain or discomfort - Objective MAR Reviewed: Yes Vital Signs & Weight: Vital Signs (12 hours) Pulse Ox 05/25/18 14:42 100 Weight Weight 145 lb 8.081 oz Most Recent Monitor Data Heart Rate from ECG 70 NIBP 119/57 NIBP BP-Mean 77 Respiration from ECG 10 SpO2 100 Phys Exam - Physical Examination Constitutional: NAD HEENT: PERRLA, moist MMs, sclera anicteric, oral pharynx no lesions, 2+ tonsils Neck: no nodes, no JVD, supple, full ROM Respiratory: no wheezing, no rales, no rhonchi, clear to auscultation bilateral Cardiovascular: RRR, no rub loud systolic murmur Gastrointestinal: soft, non-tender, no distention, positive bowel sounds Musculoskeletal: no edema, pulses present Neurological: non-focal, normal sensation, moves all 4 limbs Psychiatric: normal affect, A&O x 3 Skin: no rash Dx/Plan (1) HTN (hypertension) Code(s): I10 - ESSENTIAL (PRIMARY) HYPERTENSION Status: Chronic (2) S/P resection of meningioma Code(s): Z98.890 - OTHER SPECIFIED POSTPROCEDURAL STATES; Z86.018 - PERSONAL HISTORY OF OTHER BENIGN NEOPLASM Status: Acute (3) H/O malignant gastrointestinal stromal tumor (GIST) Code(s): Z85.09 - PERSONAL HISTORY OF MALIGNANT NEOPLASM OF DIGESTIVE ORGANS Status: Chronic (4) CAD (coronary artery disease) Code(s): I25.10 - ATHSCL HEART DISEASE OF [place] CORONARY ARTERY W/O ANG PCTRS Status: Chronic Comment: ASA and plavix held due to Post-op period - Plan plan discussed w/ family, PT/OT, incentive spirometry, DVT proph w/SCDs Cont Home meds as below .ASA.Palvix to be restarted when Ok w NS -: Pt Hd stable and comfortable.No neuro deficits -: add prn meds. -: am labs -: IM team will follow * . Review of Systems - Review of Systems Constitutional: weakness. negative: fever, chills, sweats, malaise, other ENT: negative: Ear Pain, Ear Discharge, Nose Pain, Nose Discharge, Nose Congestion, Mouth Pain, Mouth Swelling, Throat Pain, Throat Swelling, Other Respiratory: negative: Cough, Dry, Shortness of Breath, Hemoptysis, SOB with Excertion, Pleuritic Pain, Sputum, Wheezing Cardiovascular: negative: chest pain, palpitations, orthopnea, paroxysmal nocturnal dyspnea, edema, light headedness, other Gastrointestinal: negative: Nausea, Vomiting, Abdominal Pain, Diarrhea, Constipation, Melena, Hematochezia, Other Genitourinary: negative: Dysuria, Frequency, Incontinence, Hematuria, Retention , Other Musculoskeletal: negative: Neck Pain, Shoulder Pain, Arm Pain, Back Pain, Hand Pain, Leg Pain, Foot Pain, Other Skin: negative: Rash, Lesions, Glenn, Bruising, Other Neurological: negative: Weakness, Numbness, Incoordination, Change in Speech, Confusion, Seizures, Other - Medications/Allergies Allergies/Adverse Reactions: Allergies Allergy/AdvReac Type Severity Reaction Status Date / Time Iodinated Contrast- Oral and Allergy KIDNEY Verified 01/20/18 14:12 IV Dye DAMAGE [Iodinated Contrast Media - IV Dye] Medications: Current Medications Acetaminophen (Tylenol) 1,000 mg PO Q6H PRN PRN Reason: Mild Pain (1-3) Hydrocodone Bitart/Acetaminophen ([place] 7.5/325) 1 tab PO Q4H PRN PRN Reason: Moderate Pain (4-6) Last Admin: 05/25/18 13:37 Dose: 1 tab Amlodipine Besylate (Norvasc) 2.5 mg PO BID BOB Atenolol (Tenormin) 25 mg PO HS BOB Benzonatate (Tessalon) 100 mg PO Q6H PRN PRN Reason: Cough Bisacodyl (Dulcolax) 10 mg PO DAILYPRN PRN PRN Reason: Constipation Calcium Carbonate (Tums) 1,000 mg PO Q4H PRN PRN Reason: Heartburn or Indigestion Cholecalciferol (Vitamin D3) 1,000 units PO DAILY BOB Clonidine (Catapres) 0.1 mg PO Q4H PRN PRN Reason: SBP >160 ____ Cefazolin Sodium/Dextrose 2 gm (/ Device) 50 mls @ 100 mls/hr IVPB 0000,1600 BOB Last Admin: 05/25/18 15:24 Dose: 50 mls Sodium Chloride (Normal Saline 0.9%) 1,000 mls @ 75 mls/hr IV .[id number] [facility] Last Admin: 05/25/18 13:31 Dose: 1,000 mls Labetalol HCl (Normodyne) 10 mg SLOW IVP Q15MIN PRN PRN Reason: SBP > 150 mmHg Morphine Sulfate (Morphine) 2 mg SLOW IVP Q1H PRN PRN Reason: Severe Pain (7-10) Nitroglycerin (Nitrostat) 0.4 mg SL Q5MIN PRN PRN Reason: Chest Pain Ondansetron HCl (Zofran) 4 mg IVP Q6H PRN PRN Reason: Nausea/Vomiting Pantoprazole Sodium (Protonix) 40 mg IVP DAILY [facility] Promethazine HCl (Phenergan) 12.5 mg IVPB Q6H PRN PRN Reason: Nausea/Vomiting Rosuvastatin Calcium (Crestor) 10 mg PO HS [facility] Senna/Docusate Sodium (Senokot S) 2 tab PO BID PRN PRN Reason: Constipation Sodium Chloride (Flush - Normal Saline) 10 ml IVF PRN PRN PRN Reason: Saline Flush Sodium Chloride ([place] Nasal [place] 0.65%) 0 ml EA NARE QIDPRN PRN PRN Reason: Nasal Congestion
[2018-05-25] MEDS: Atenolol 50 MG TAB PO SCH (21:20)
[2018-05-25] MEDS: Rosuvastatin 20 MG TAB PO SCH (21:21)
[2018-05-25] MEDS: Amlodipine 5 MG TAB PO SCH (21:21)
[2018-05-26 04:14] LABS: #Lymphocytes 0.7 thou/uL (1.20-3.40); #Monocytes 0.7 thou/uL (0.11-0.59); #Neutrophils 10.2 thou/uL (1.40-6.50); %Basophils 0.1 % (0.0-1.0); %Eosinophils 0.1 % (0.0-10.0); %Lymphocytes 5.8 % (21.0-51.0); %Monocytes 6.2 % (0.0-10.0); %Neutrophils 87.8 % (42.0-75.0); Hemoglobin 10.4 g/dL (12.0-16.0); Mean Corpuscular HGB CONC 33.4 g/dL (32.0-36.0); Mean Corpuscular Hemoglobin 32.2 pg (27.0-31.0); Mean Corpuscular Volume 96.4 fL (78.0-98.0); Mean Platelet Volume 6.9 fL (7.4-10.4); Platelet Count 146 thou/uL (130-400); RBC Distribution Width 14.5 % (11.5-14.5); Red Blood Cell (RBC) Count 3.23 mill/uL (4.20-5.40); White Blood Cell (WBC) Count 11.6 thou/uL (4.8-10.8)
[2018-05-26 04:35] LABS: Anion Gap 9 mmol/L (10-20); BUN (Urea Nitrogen) 13 mg/dL (9.8-20.1); Calc. Creatinine Clearance 60 mL/min (70-130); Calcium 8.1 mg/dL (7.8-10.44); Carbon Dioxide 25 mmol/L (23-31); Chloride 109 mmol/L (98-107); Estimated GFR-MDRD 68; Glucose 134 mg/dL (83-110); Potassium 3.9 mmol/L (3.5-5.1); Sodium 139 mmol/L (136-145)
--- NOTE | 2018-05-26 07:15 | CT ---
CT HEAD NONCONTRAST: Date: 05/26/18 INDICATION: Craniotomy, follow-up. FINDINGS: There is evidence of right parietal craniotomy with underlying postsurgical air and mixed extra-axial density which effaces the adjacent brain parenchyma. There is mild underlying vasogenic edema and mi ld associated postoperative hyperdensity likely related to small volume blood products and calcificat ion/osseous fragments. Ventricular system is age-appropriate in size. There is no significant midline shift. Mild dependent pneumocephalus seen overlying the right frontal convexity. There is overlying right parietal scalp swelling related to surgical site with clips in place. IMPRESSION: 1. Postoperative head CT. 2. Interval resection of prior mass of the operative site region. POS: [facility]
[2018-05-26] MEDS: Amlodipine 5 MG TAB PO SCH ×2 (08:08→20:01)
[2018-05-26] MEDS: Pantoprazole 40 MG VIAL IVP SCH (08:09)
--- NOTE | 2018-05-26 10:52 | PRG ---
DATE OF SERVICE: 05/26/2018 Ms. Moise is postoperative day 1 from right-sided temporal craniotomy stereotactically and resection meningioma. Postoperative CT is acceptable. She has a nonfocal exam. We will plan for transfer to the floor. Preliminary pathology is meningioma. Job ID: [id number]
[2018-05-26] MEDS: CEFAZOLIN 2 GM in Premix Bag 1 BAG IVPB SCH ×2 (15:28)
[2018-05-26] MEDS ORDERED: Milk Of Magnesia 30 ML UDCUP PO PRN (16:14)
--- NOTE | 2018-05-26 17:08 | PDOC.PN ---
- Subjective Encounter Start Date: 05/26/18 Encounter Start Time: 16:40 Postop medical consultation right side temporal craniotomy and resection meningioma. Doing well. Pain controlled. No neuro deficit. Whitfield to be discontinued prior to transfer to postop floor. No N/V. Endorses gas pain, MOM added for constipation. - Objective Vital Signs & Weight: Vital Signs (12 hours) Temp Pulse Pulse Pulse BP BP BP 05/26/18 16:00 98.1 F 05/26/18 11:00 98.8 F 05/26/18 10:22 72 68 128/68 130/65 05/26/18 09:33 72 73 125/68 131/58 L 05/26/18 08:08 74 122/63 05/26/18 07:40 05/26/18 07:00 98.5 F Pulse Ox Pulse Ox Pulse Ox 05/26/18 16:00 05/26/18 11:00 05/26/18 10:22 99 98 05/26/18 09:33 97 97 05/26/18 08:08 05/26/18 07:40 97 05/26/18 07:00 Weight Admit Weight 145 lb 8.081 oz Weight 145 lb 8.081 oz Most Recent Monitor Data Heart Rate from ECG 74 NIBP 130/80 NIBP BP-Mean 96 Respiration from ECG 12 SpO2 98 I&O: 05/25/18 05/26/18 05/27/18 06:59 06:59 06:59 Intake Total 2529 2048 Output Total 2155 2275 Balance 374 -227 Result Diagrams: 05/26/18 04:05 05/26/18 04:05 Phys Exam - Physical Examination Constitutional: NAD Postop wound dressed HEENT: moist MMs, oral pharynx no lesions Neck: no JVD, supple, full ROM Respiratory: clear to auscultation bilateral Cardiovascular: RRR RUSB murmur Gastrointestinal: soft, non-tender Musculoskeletal: no edema Neurological: non-focal, moves all 4 limbs Lymphatic: no nodes Psychiatric: normal affect, A&O x 3 Skin: no rash Dx/Plan (1) S/P resection of meningioma Code(s): Z98.890 - OTHER SPECIFIED POSTPROCEDURAL STATES; Z86.018 - PERSONAL HISTORY OF OTHER BENIGN NEOPLASM Status: Acute (2) CAD (coronary artery disease) Code(s): I25.10 - ATHSCL HEART DISEASE OF [place] CORONARY ARTERY W/O ANG PCTRS Status: Chronic Comment: ASA and plavix held due to Post-op period (3) H/O malignant gastrointestinal stromal tumor (GIST) Code(s): Z85.09 - PERSONAL HISTORY OF MALIGNANT NEOPLASM OF DIGESTIVE ORGANS Status: Chronic (4) HTN (hypertension) Code(s): I10 - ESSENTIAL (PRIMARY) HYPERTENSION Status: Chronic Comment: Stable postop, continue home amlodipine and atenolol (5) Dyslipidemia Code(s): E78.5 - HYPERLIPIDEMIA, UNSPECIFIED Status: Acute Comment: Chronic , continue home Crestor - Plan * See above. * Discontinue whitfield. Transfer orders in place, PT/OT. * Check AM CBC, Hg 10.4 today.
[2018-05-26] MEDS: Atenolol 50 MG TAB PO SCH (20:02)
[2018-05-26] MEDS: Rosuvastatin 20 MG TAB PO SCH (20:03)
[2018-05-27] MEDS: CEFAZOLIN 2 GM in Premix Bag 1 BAG IVPB SCH ×2 (00:10→16:32)
--- NOTE | 2018-05-27 02:24 | CON ---
DATE OF CONSULTATION: 05/26/2018 HISTORY OF PRESENT ILLNESS: Ms. Moise is afebrile. Her events have been reviewed. She successfully undergone a craniotomy and actually she did not have a bandage on her head, you would not know that she had been through any surgery. She is very quick to response to questions. She moves all extremities equally. OBJECTIVE: GENERAL: She is in no distress. VITAL SIGNS: Stable. She is afebrile. Heart rate 79, respiratory rate 18, oximetry is 100% on room air, blood pressure 152/64. LUNGS: Clear. HEART: Regular rhythm. S1 and S2 are normal. ABDOMEN: Soft and nontender. EXTREMITIES: Without clubbing, cyanosis, or edema. LABORATORY DATA: White count 11.6, hemoglobin 10.4, platelets 146. Electrolytes are unremarkable. IMPRESSION: Status post craniotomy. Surgical specimen from yesterday surprisingly is out. She had a grade 1 meningioma. Apparently, this was successfully resected. 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 She has also had pleurodesis after pleural biopsies for pleural effusion that we felt was probably related to the Gleevec. No pathology for cancer was found in her pleural biopsies and she had a successful pleurodesis. The effusion has not recurred. We will continue to follow the other physicians caring for her. Job ID: [id number] [facility]
[2018-05-27 05:23] LABS: Hemoglobin 10.7 g/dL (12.0-16.0); Lymphocytes 12 % (21-51); MDiff Complete? YES; Mean Corpuscular HGB CONC 34.3 g/dL (32.0-36.0); Mean Corpuscular Hemoglobin 33.2 pg (27.0-31.0); Mean Corpuscular Volume 96.9 fL (78.0-98.0); Mean Platelet Volume 8.2 fL (7.4-10.4); Monocytes 9 % (0-10); Neutrophil 79 % (42-75); Platelet Count 149 thou/uL (130-400); RBC Distribution Width 14.4 % (11.5-14.5); Red Blood Cell (RBC) Count 3.23 mill/uL (4.20-5.40); White Blood Cell (WBC) Count 9.3 thou/uL (4.8-10.8)
[2018-05-27 09:00] LABS: Anion Gap 9 mmol/L (10-20); BUN (Urea Nitrogen) 14 mg/dL (9.8-20.1); Calc. Creatinine Clearance 60 mL/min (70-130); Carbon Dioxide 30 mmol/L (23-31); Chloride 104 mmol/L (98-107); Estimated GFR-MDRD 69; Glucose 94 mg/dL (83-110); Sodium 139 mmol/L (136-145)
[2018-05-27] MEDS: Amlodipine 5 MG TAB PO SCH ×2 (09:08→20:59)
[2018-05-27] MEDS: Pantoprazole 40 MG VIAL IVP SCH (09:08)
[2018-05-27] MEDS: Acetaminophen 500 MG TAB PO PRN ×2 (09:33→21:06)
--- NOTE | 2018-05-27 16:13 | PRG ---
DATE OF SERVICE: 05/27/2018 Postoperative recheck. Ms. Moise is now postoperative day #2, having undergone right craniotomy for presumed meningioma resection. Today, the patient is doing very well. She has been walking to the bathroom. She is tolerating a diet. GCS currently is 15. She follows commands equally in all 4 extremities. Likely plan for dismissal tomorrow with home health. She has significant amount of support at home with her family. She is very pleased with her outcome. We will likely restart her Gleevec upon discharge. Please call with any changes in patient's neurologic status. Job ID: [id number]
[2018-05-27] MEDS: Rosuvastatin 20 MG TAB PO SCH (20:58)
[2018-05-27] MEDS: Atenolol 50 MG TAB PO SCH (21:00)
--- NOTE | 2018-05-27 22:02 | PDOC.PN ---
- Subjective Encounter Start Date: 05/27/18 Encounter Start Time: 09:15 Patient seen and examined for med mngt. No CP/Palpitations. No new complaints. No overnight events - Objective MAR Reviewed: Yes Vital Signs & Weight: Vital Signs (12 hours) Temp Pulse Resp BP BP Pulse Ox 05/27/18 21:00 69 125/69 05/27/18 20:59 69 125/69 05/27/18 20:00 98 F 69 16 122/65 98 05/27/18 15:25 98.4 F 74 16 125/69 97 05/27/18 11:26 98.8 F 69 15 126/69 97 Weight Admit Weight 145 lb 8.081 oz Weight 145 lb 8.081 oz Most Recent Monitor Data Heart Rate from ECG 74 NIBP 130/80 NIBP BP-Mean 96 Respiration from ECG 12 SpO2 98 I&O: 05/26/18 05/27/18 05/28/18 06:59 06:59 06:59 Intake Total 2522 2043 650 Output Total 3879 3390 Balance 374 -227 650 Result Diagrams: 05/27/18 04:25 05/27/18 07:48 Phys Exam - Physical Examination Constitutional: NAD Respiratory: no wheezing, no rhonchi Cardiovascular: RRR, no rub Gastrointestinal: soft, non-tender, positive bowel sounds Musculoskeletal: no edema Dx/Plan - Plan DVT proph w/SCDs 1. CAD 2. HTN 3. CKD 2 4. Dyslipidemia PLAN: Cont Amlodipine/Atenolol Cont Crestor Will follow Review of Systems - Medications/Allergies Allergies/Adverse Reactions: Allergies Allergy/AdvReac Type Severity Reaction Status Date / Time Iodinated Contrast- Oral and Allergy KIDNEY Verified 01/20/18 14:12 IV Dye DAMAGE [Iodinated Contrast Media - IV Dye] Medications: Current Medications Acetaminophen (Tylenol) 1,000 mg PO Q6H PRN PRN Reason: Mild Pain (1-3) Last Admin: 05/27/18 21:06 Dose: 1,000 mg Hydrocodone Bitart/Acetaminophen ([place] 7.5/325) 1 tab PO Q4H PRN PRN Reason: Moderate Pain (4-6) Last Admin: 05/25/18 21:20 Dose: 1 tab Amlodipine Besylate (Norvasc) 2.5 mg PO BID BOB Last Admin: 05/27/18 20:59 Dose: 2.5 mg Atenolol (Tenormin) 25 mg PO [facility] Last Admin: 05/27/18 21:00 Dose: 25 mg Benzonatate (Tessalon) 100 mg PO Q6H PRN PRN Reason: Cough Bisacodyl (Dulcolax) 10 mg PO DAILYPRN PRN PRN Reason: Constipation Calcium Carbonate (Tums) 1,000 mg PO Q4H PRN PRN Reason: Heartburn or Indigestion Cholecalciferol (Vitamin D3) 1,000 units PO DAILY [facility] Last Admin: 05/27/18 09:10 Dose: 1,000 units Clonidine (Catapres) 0.1 mg PO Q4H PRN PRN Reason: SBP >160 ____ Labetalol HCl (Normodyne) 10 mg SLOW IVP Q15MIN PRN PRN Reason: SBP > 150 mmHg Magnesium Hydroxide (Milk Of Magnesium) 30 ml PO HSPRN PRN PRN Reason: Constipation Last Admin: 05/26/18 20:28 Dose: 30 ml Morphine Sulfate (Morphine) 2 mg SLOW IVP Q1H PRN PRN Reason: Severe Pain (7-10) Nitroglycerin (Nitrostat) 0.4 mg SL Q5MIN PRN PRN Reason: Chest Pain Ondansetron HCl (Zofran) 4 mg IVP Q6H PRN PRN Reason: Nausea/Vomiting Pantoprazole Sodium (Protonix) 40 mg IVP DAILY [facility] Last Admin: 05/27/18 09:08 Dose: 40 mg Promethazine HCl (Phenergan) 12.5 mg IVPB Q6H PRN PRN Reason: Nausea/Vomiting Rosuvastatin Calcium (Crestor) 10 mg PO [facility] Last Admin: 05/27/18 20:58 Dose: 10 mg Senna/Docusate Sodium (Senokot S) 2 tab PO BID PRN PRN Reason: Constipation Sodium Chloride (Flush - Normal Saline) 10 ml IVF PRN PRN PRN Reason: Saline Flush Last Admin: 05/27/18 09:19 Dose: 10 ml Sodium Chloride ([place] Nasal [place] 0.65%) 0 ml EA NARE QIDPRN PRN PRN Reason: Nasal Congestion
[2018-05-28] MEDS: Amlodipine 5 MG TAB PO SCH (09:14)
[2018-05-28] MEDS: Pantoprazole 40 MG VIAL IVP SCH (09:15)
--- NOTE | 2018-05-28 09:56 | PRG ---
DATE OF SERVICE: 05/28/2018 SUBJECTIVE: Ms. Moise is doing well postoperatively. Her pathology is consistent with WHO grade 1 meningioma. She is neurologically intact. We will make arrangements for dismissal home. We went over both intra and postoperative issues. She will hold her Gleevec until we see her in followup given its ability to decrease white blood cell count and fight infection. I think it is godoy that we hold this at this time. Job ID: [id number]
[2018-05-28 12:06] VITALS: BP 149/77; TEMP 98.1
== END 2018-05-28 11:45 | disposition home or self-care (01) | DRG 26 ==
LOC: SURG A 05-25 06:03 → CCU 05-25 13:06 → SURG B 05-26 17:18
PROVIDERS: ADMIT Surgery; ATTEND Surgery
PROC: 00B00ZZ Excision of Brain, Open Approach (ICD-10-PCS; principal; 2018-05-25)
PROC: 2W30XYZ Immobilization of Head using Other Device (ICD-10-PCS; 2018-05-25)
DX: D32.0 Benign neoplasm of cerebral meninges (principal); C70.0 Malignant neoplasm of cerebral meninges; I25.10 Atherosclerotic heart disease of native coronary artery without angina pectoris; I12.9 Hypertensive chronic kidney disease with stage 1 through stage 4 chronic kidney disease, or unspecified chronic kidney disease; N18.2 Chronic kidney disease, stage 2 (mild); E78.5 Hyperlipidemia, unspecified; Z85.00 Personal history of malignant neoplasm of unspecified digestive organ
CPT/HCPCS: 36415; 70450; 70460; 80048; 85025; 88307; 88331; 88334; 88341; 88342; 88360; C1713; C9113; J0131; J0670; J1200; J1953; J2001; J2370; J2405; J2704; J2930; J3010; J3490; P9045; Q9967; S0028

== ENCOUNTER 2018-05-24 12:49 | Outpatient (CLI) | payer MEDICARE, OTHER ==
[~2018-05-24 12:49] MED LIST: Iopamidol 370 76% 100 ML VIAL ONE
[2018-05-24] MEDS ORDERED: Famotidine/PF 20 mg/2ml Vial SLOW IVP SCH (14:45)
[2018-05-24] MEDS ORDERED: diphenhydrAMINE 50 MG/ML VIAL ONE (14:58)
[2018-05-24] MEDS ORDERED: Sodium Chloride 0.9% 30 ML ONE (14:58)
[2018-05-24] MEDS ORDERED: methylPREDNISolone Sod Succ/PF 125 MG/2 ML VIAL ONE (14:58)
[2018-05-24] MEDS ORDERED: diphenhydrAMINE 50 MG/ML VIAL IVP SCH (15:15)
[2018-05-24] MEDS ORDERED: Sodium Chloride 0.9% 20 ML ONE (15:23)
--- NOTE | 2018-05-24 16:34 | CT ---
FExam: Head CT with and without contrast HISTORY: Benign neoplasm of the brain. Brain lab protocol. COMPARISON: None FINDINGS: Noncontrast head CT: Intact calvarium. Adequate aeration of sinuses and mastoid air cells. Cortical g ray-white matter differentiation is preserved. No hydrocephalus. Peripherally calcified extra-axial mass along the right occipital convexity measuring 2.1 x 1.6 cm. M ild associated enhancement Postcontrast head CT: No pathologic enhancement in the brain parenchyma. IMPRESSION: Enhancing extra-axial mass with peripheral calcification along the right occipital convex ity, most compatible with meningioma.
== END 2018-05-24 12:50 | disposition home or self-care (01) ==
LOC: CT 12:49
PROVIDERS: ATTEND Surgery
DX: D33.2 Benign neoplasm of brain, unspecified (principal); G93.89 Other specified disorders of brain
CPT/HCPCS: 70460; J1200; J2930; Q9967; S0028

== ENCOUNTER 2018-07-29 08:05 | Outpatient (CLI) | payer MEDICARE, OTHER ==
--- NOTE | 2018-07-29 10:46 | PET ---
Exam: PET CT SKULL TO MID THIGH: COMPARISON: Prior PET CT exam 12/29/2017. 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 TECHNIQUE: A PET/CT was performed from the skull to the mid thigh after administration of 12.3 millicuries of F- 18 FDG. Evaluation was performed on a [employer] workstation. FINDINGS: NECK: No areas of hypermetabolic activity. CHEST: Prior large left effusion has resolved. There are multifocal, left hemithoracic areas of pleur al-based thickening with nodularity which are intrinsically dense, involving the left apical region, and the mid to inferior left hemithorax, with associated hypermetabolic activity with maximum SUV of approximately 6.6, located at the medial left apex. ABDOMEN/PELVIS: Prior partially calcified pelvic mass of the pelvis is redemonstrated, the right late ral component of which is difficult to reliably separate from bowel. This region has increased in metabolic activity, currently is hypermetabolic, with maximum SUV of approximately 8.4, indicating pr ogression from prior exam. By noncontrast attenuation correction CT imaging, the lobular mass measures approximately 6 cm in transverse diameter. The prior mass of the lower abdominal mesentery, previously measured at SUV of 2.6, has resolved. SKELETON: No areas of hypermetabolic activity. CT images used for attenuation correction show evidence of prior cholecystectomy. There is colonic di verticulosis. Diffuse atherosclerosis is present. IMPRESSION: 1. Interval progression of hypermetabolic activity of the previously demonstrated partially calcifie d soft tissue mass of the pelvis, to indicate progressive disease. Note is made that portions of this mass are difficult to delineate from traversing bowel which does somewhat limit sensitivity of t his evaluation. 2. Interval resolution of large left pleural effusion although there is multifocal hypermetabolic pl eural disease of the left chest, which is suspicious for malignancy. 3. Prior lower abdominal mesenteric mass has resolved, indicating response to therapy. Transcribed Date/Time: 07/29/2018 11:25 AM
== END 2018-07-29 08:06 | disposition home or self-care (01) ==
LOC: PET 08:05
PROVIDERS: ATTEND Internal Medicine Hematology & Oncology
DX: C49.A0 Gastrointestinal stromal tumor, unspecified site (principal); J90 Pleural effusion, not elsewhere classified; R19.00 Intra-abdominal and pelvic swelling, mass and lump, unspecified site
CPT/HCPCS: 78815; A9552

== ENCOUNTER 2018-09-21 12:52 | Outpatient (CLI) | payer MEDICARE, OTHER ==
--- NOTE | 2018-09-21 13:21 | RAD ---
XR Chest Pa Lat @ POB History: Dyspnea Comparison: PET/CT July 2018 Findings: Continues to be extensive abnormal pleural peripheral thickening along the left hemithorax. Right lung is relatively clear. New nodularity left upper lobe. Impression: Similar left peripheral pleural thickening with slight increased nodularity in the left u pper lobe concerning for metastatic disease.
== END 2018-09-21 12:53 | disposition home or self-care (01) ==
LOC: RAD 12:52
PROVIDERS: ATTEND Internal Medicine Critical Care Medicine
DX: R06.00 Dyspnea, unspecified (principal)
CPT/HCPCS: 71046

== ENCOUNTER 2018-12-09 09:34 | Outpatient (CLI) | payer MEDICARE, OTHER ==
--- NOTE | 2018-12-09 13:42 | PET ---
PET CT: HISTORY: 78-year-old female with metastatic GIST. Status post chemo/radiation therapy. Exam requested for rest aging. TECHNIQUE: PET scanning with CT attenuation correction was performed from the base of the brain through the prox imal thighs following the intravenous administration of 11.4 mCi F18-FDG in the right antecubital fos sa. COMPARISON: PET scan dated 07/29/18. FINDINGS: No solis hypermetabolism is seen in the neck, chest, axilla, or abdomen. Pleural based thickening and nodularity in the left hemithorax with foci of increased FDG localizatio n are again seen. The highest SUV is at the left apex measuring 13 (previously 6.6). No hypermetabolic parenchymal lung nodules, liver, adrenal, or skeletal lesions are seen. The focus of intense uptake in the right lower quadrant is again seen with a SUV of 13.3 (previously 9.3). There is physiologic activity in the GI and tracts. A small left pleural effusion is stable. No pe ricardial effusion, right pleural effusion, or ascites identified. Colonic diverticulosis is again se en. IMPRESSION: Interval increase in the SUVs of areas of previously noted hypermetabolism. No new lesions are seen. POS: [facility]
== END 2018-12-09 09:35 | disposition home or self-care (01) ==
LOC: PET 09:34
PROVIDERS: ATTEND Internal Medicine Hematology & Oncology
DX: C49.A0 Gastrointestinal stromal tumor, unspecified site (principal); R19.00 Intra-abdominal and pelvic swelling, mass and lump, unspecified site
CPT/HCPCS: 78815; A9552

== ENCOUNTER 2019-02-24 08:54 | Outpatient (CLI) | payer MEDICARE, OTHER ==
--- NOTE | 2019-02-24 12:18 | PET ---
PET CT: HISTORY: A 78-year-old female with metastatic GIST. Status post chemoradiation therapy. Exam was requested t o evaluate for subsequent therapy. Malignant neoplasm of connective and soft tissue abdomen. TECHNIQUE: PET scanning with CT attenuation correction was performed from the base of the brain through the prox imal thighs following the intravenous administration of 10.2 mCi [id number] in the right antecubital fossa. COMPARISON: PET scan dated 12/09/2018. FINDINGS: No solis hypermetabolism is seen in the neck, chest, or axilla. Pleural-based signal abnormalities in the left hemithorax with foci of increased FDG localization are again seen, the highest SUVs of the left apex measuring 10.3 (previously 13). No hypermetabolic parenchymal nodules, liver, or adrenal lesions are seen. There is a new focus of increased FDG localization in the left superior acetabulum with an SUV of 3.2 . There is new increased hypermetabolic activity in the left lower breast nodule with an SUV of 3.3. T here is abnormally increased FDG localization in the left lower abdominal mesenteric mass (left chiqui edian) with an SUV of 5. There is continued FDG localization in the right lower quadrant mass with an SUV of 8.8 (previously 1 3.3). There is physiologic activity in the GI and tracts. A small left pleural effusion is stable. No pericardial effusion, right pleural effusion, or ascites are identified. Colonic diverticulosis is a gain seen. IMPRESSION: Mixed response to therapy. New lesions are seen since the PET scan of 12/09/2018. POS: [facility]
== END 2019-02-24 08:55 | disposition home or self-care (01) ==
LOC: PET 08:54
PROVIDERS: ATTEND Internal Medicine Hematology & Oncology
DX: C49.4 Malignant neoplasm of connective and soft tissue of abdomen (principal); R19.00 Intra-abdominal and pelvic swelling, mass and lump, unspecified site
CPT/HCPCS: 78815; 80053; A9552; 36415

== ENCOUNTER 2019-03-09 09:21 | Outpatient (CLI) | payer MEDICARE, OTHER ==
--- NOTE | 2019-03-09 10:47 | MMO ---
Bilateral MAMMO Bilat Diag DDI+LELA. CLINICAL HISTORY: Patient is 78 years old and is seen for diagnostic exam. The patient has the following family history of breast cancer: mother; sister and cousin gender unknown. The patient has a history of malignant (generic) in the left breast at age 56 and gi cancer. The patient has a history of left Lumpectomy in February, - malignant and bilateral Excisional Biopsy in 1969 - benign. VIEWS: The views performed were: bilateral craniocaudal with tomosynthesis; bilateral mediolateral oblique with tomosynthesis; and bilateral mediolateral with tomosynthesis. FILMS COMPARED: The present examination has been compared to prior imaging studies performed at [facility] on 07/12/2014, 08/22/2015 and 03/09/2019, and at [facility] on 12/16/2007. This study has been interpreted with the assistance of computer-aided detection. MAMMOGRAM FINDINGS: The breasts are heterogeneously dense, which could obscure a lesion on mammography. Finding 1: There is a new equal density, oval mass measuring 10 millimeters with obscured margins seen in the left breast at 7 o'clock. Ultrasound demonstrates a suspicious hypoechoic mass. Finding 2: There are stable post operative changes seen in both breasts. Finding 3: There are stable benign appearing calcifications seen in both breasts. IMPRESSION: FINDING 1: NEW MASS IN THE LEFT BREAST IS SUSPICIOUS. AN ULTRASOUND-GUIDED BREAST BIOPSY IS RECOMMENDED. RESULTS AND RECOMMENDATIONS DISCUSSED WITH THE PATIENT AND QUESTIONS ANSWERED. THE RESULTS OF THIS EXAM WERE SENT TO THE PATIENT. ACR BI-RADS Category 4 - Suspicious abnormality - biopsy should be considered MAMMOGRAPHY NOTE: 1. A negative mammogram report should not delay a biopsy if a dominant of clinically suspicious mass is present. 2. Approximately 10% to 15% of breast cancers are not detected by mammography. 3. Adenosis and dense breasts may obscure an underlying neoplasm. Reported by: GRANT WESTON MD Electonically Signed: [id number]
--- NOTE | 2019-03-09 11:18 | ULT ---
LIMITED LEFT BREAST ULTRASOUND: DATE: 03/09/2019. PROVIDED CLINICAL HISTORY: Left breast mass. FINDINGS: Limited sonographic interrogation was performed of the left breast in the region of mammographic and abnormality on recent PET scan of 02/24/2019. There is an oval, microlobulated, hypoechoic mass with p osterior shadowing at the 7 o'clock position of the left breast measuring approximately 1 cm in great est dimension. IMPRESSION: BIRADS category 4 - suspicious abnormality. Ultrasound-guided biopsy is recommended. Results and re commendations discussed with the patient and Dr. Sanchez prior to this dictation. CODE CR POS: OFF
== END 2019-03-09 09:22 | disposition home or self-care (01) ==
LOC: BICMAMMO 09:21
PROVIDERS: ATTEND Internal Medicine Hematology & Oncology
DX: N63.20 Unspecified lump in the left breast, unspecified quadrant (principal); R92.8 Other abnormal and inconclusive findings on diagnostic imaging of breast
CPT/HCPCS: 76642; 77066; G0279

== ENCOUNTER → 2019-03-21 | Day surgery (SDC) | payer MEDICARE, OTHER ==
--- NOTE | 2019-03-21 13:52 | MMO ---
Left Breast MAMMO Unilat Diag DDI LT. CLINICAL HISTORY: Patient is 78 years old and is seen for breast biopsy. The patient has the following family history of breast cancer: mother; sister and cousin gender unknown. The patient has a history of malignant (generic) in the left breast at age 56 and gi cancer. The patient has a history of left Lumpectomy in February, - malignant and bilateral Excisional Biopsy in 1969 - benign. VIEWS: The views performed were: left craniocaudal and left mediolateral oblique. FILMS COMPARED: The present examination has been compared to prior imaging studies performed at [facility] on 07/12/2014, 08/22/2015 and 03/09/2019. This study has been interpreted with the assistance of computer-aided detection. MAMMOGRAM FINDINGS: The breast is heterogeneously dense, which could obscure a lesion on mammography. There is a new biopsy clip seen in the lower-inner region of the left breast. IMPRESSION: NEW BIOPSY CLIP IN THE LEFT BREAST IS SUSPICIOUS. BIOPSY IS RECOMMENDED. BIOPSY HAS BEEN PERFORMED AND PATHOLOGY IS PENDING. THE RESULTS OF THIS EXAM WERE SENT TO THE PATIENT. ACR BI-RADS Category 4 - Suspicious abnormality - biopsy should be considered MAMMOGRAPHY NOTE: 1. A negative mammogram report should not delay a biopsy if a dominant of clinically suspicious mass is present. 2. Approximately 10% to 15% of breast cancers are not detected by mammography. 3. Adenosis and dense breasts may obscure an underlying neoplasm. Reported by: LIBRA CARRILLO MD Electonically Signed: [id number]
--- NOTE | 2019-03-21 15:30 | ULT ---
ULTRASOUND GUIDED CORE BIOPSY OF THE LEFT BREAST MASS: DATE: 03/21/2019. COMPARISON: None. HISTORY: Suspicious 1.1 cm hypoechoic lesion at the 7 o'clock position of the left breast. FINDINGS: Informed consent was obtained prior to the procedure. Preprocedural imaging re-identifies a hypoecho ic suspicious solid mass at the 7 o'clock position of the left breast measuring 8 x 11 mm. The skin overlying this lesion was prepped and draped in normal sterile fashion and anesthetized with 1% buffered Lidocaine. With direct sonographic guidance, three 12-gauge core biopsies were obtained. Specimen was sent to t laboratory for assessment. The patient tolerated the procedure well. Postprocedural clip was samaria celia within the lesion and confirmed with mammogram. IMPRESSION: Successful ultrasound-guided core biopsy of the left breast mass at the 7 o'clock position. POS: OFF
== END ==
LOC: BICULT 12:40
PROVIDERS: ATTEND Internal Medicine Hematology & Oncology
PROC: 0H9U3ZX Drainage of Left Breast, Percutaneous Approach, Diagnostic (ICD-10-PCS; principal; 2019-03-21)
DX: C50.312 Malignant neoplasm of lower-inner quadrant of left female breast (principal); Z91.041 Radiographic dye allergy status
CPT/HCPCS: 19083; 88305; 88341; 88342

== ENCOUNTER 2019-04-05 13:28 | Outpatient (CLI) | payer MEDICARE, OTHER ==
--- NOTE | 2019-04-05 13:53 | RAD ---
XR Chest Pa Lat @ POB HISTORY: Dyspnea COMPARISON: None FINDINGS: The heart size is normal. The lungs are well expanded without focal areas of consolidation, pneumothorax or pleural effusions. Mild chronic changes are again seen IMPRESSION: No radiographic evidence of acute cardiopulmonary process.
== END 2019-04-05 13:29 | disposition home or self-care (01) ==
LOC: RAD 13:28
PROVIDERS: ATTEND Internal Medicine Critical Care Medicine
DX: R06.00 Dyspnea, unspecified (principal)
CPT/HCPCS: 71046

== ENCOUNTER 2019-04-21 09:17 | Day surgery (SDC) | payer MEDICARE, OTHER ==
[2019-04-20 11:56] VITALS: BMI 24.5
[2019-04-21] MEDS ORDERED: Acetaminophen 500 MG TAB ONE (09:40)
[2019-04-21] MEDS ORDERED: Ketorolac Tromethamine 30 MG/ML VIAL ONE (09:40)
[2019-04-21 10:25] LABS: #Eosinphils 0.1 thou/uL (0.0-0.7); #Lymphocytes 1.7 thou/uL (1.20-3.40); #Monocytes 0.4 thou/uL (0.11-0.59); #Neutrophils 3.5 thou/uL (1.40-6.50); %Basophils 0.3 % (0.0-1.0); %Eosinophils 1.4 % (0.0-10.0); %Lymphocytes 29.6 % (21.0-51.0); %Monocytes 6.4 % (0.0-10.0); %Neutrophils 62.4 % (42.0-75.0); Hemoglobin 13.2 g/dL (12.0-16.0); Mean Corpuscular HGB CONC 33.5 g/dL (32.0-36.0); Mean Corpuscular Hemoglobin 33.9 pg (27.0-31.0); Mean Platelet Volume 8.1 fL (7.4-10.4); Platelet Count 174 thou/uL (130-400); RBC Distribution Width 12.1 % (11.5-14.5); White Blood Cell (WBC) Count 5.7 thou/uL (4.8-10.8)
[2019-04-21 10:44] LABS: Anion Gap 14 mmol/L (10-20); BUN (Urea Nitrogen) 13 mg/dL (9.8-20.1); Calc. Creatinine Clearance 42 mL/min (70-130); Calcium 9.7 mg/dL (7.8-10.44); Carbon Dioxide 22 mmol/L (23-31); Chloride 107 mmol/L (98-107); Estimated GFR-MDRD 53; Glucose 94 mg/dL (83-110); Potassium 4.2 mmol/L (3.5-5.1); Sodium 139 mmol/L (136-145)
[2019-04-21] MEDS ORDERED: Bupivacaine PF 0.5% 30 ML VIAL ONE (10:58)
[2019-04-21] MEDS ORDERED: Lidocaine 1% w/Epinephrine 1:100K 20 ML VIAL ONE (10:58)
[2019-04-21] MEDS ORDERED: Dexamethasone 20 MG/5 ML VIAL ONE (11:10)
[2019-04-21] MEDS ORDERED: Ondansetron PF 4 MG/2 ML Vial ONE ×2 (11:10→13:16)
[2019-04-21] MEDS ORDERED: EPHEDRINE 25 MG/5 ML SYRINGE ONE (11:10)
[2019-04-21] MEDS ORDERED: PROPOFOL 200 MG/20 ML VIAL ONE (11:10)
[2019-04-21] MEDS ORDERED: Lidocaine 1% PF 5 ML VIAL ONE (11:10)
[2019-04-21] MEDS ORDERED: Fentanyl 100 MCG/2 ML VIAL ONE (11:32)
--- NOTE | 2019-04-21 16:53 | EKG ---
Test Reason : PREOP Blood Pressure : / mmHG Vent. Rate : 065 BPM Atrial Rate : 065 BPM P-R Int : 156 ms QRS Dur : 082 ms QT Int : 400 ms P-R-T Axes : 073 024 -47 degrees QTc Int : 416 ms Normal sinus rhythm Nonspecific ST and T wave abnormality Abnormal ECG When compared with ECG of 18-MAY-2018 11:06, Inverted T waves have replaced nonspecific T wave abnormality in Inferior leads Nonspecific T wave abnormality now evident in Lateral leads Confirmed by DR. Summer DYER (3) on 04/21/2019 4:53:06 PM Referred By: IVONNE Confirmed By:DR. Summer DYER
--- NOTE | 2019-04-22 13:17 | OP ---
DATE OF PROCEDURE: 04/21/2019 PREOPERATIVE DIAGNOSIS: Left breast cancer. POSTOPERATIVE DIAGNOSIS: Left breast cancer. PROCEDURES PERFORMED: Left breast ultrasound-guided needle localization, left breast needle localized lumpectomy. ANESTHESIA: General endotracheal. INDICATIONS: The patient is a 78-year-old white female. She gives a remote history of left breast cancer for which she underwent a lumpectomy and radiation therapy. The prior cancer was in the upper breast. She had presented recently with a new malignancy at about the 7 o'clock radian in the lower aspect of the left breast. After discussion of all options in regard to the surgical treatment, I have recommended and she agrees to proceed with a needle localized left breast lumpectomy. In light of the obvious change in the underlying tissues associated with the radiation therapy, I thought she was at high risk for problems with healing from a mastectomy. She is not a candidate for additional radiation therapy. She has already had a complete axillary node dissection. She is therefore not a candidate for sentinel lymph node or axillary node dissection. DESCRIPTION OF OPERATION: Informed consent was obtained. The patient was taken to the operating room, where general endotracheal anesthesia obtained with the patient in supine position. The left breast was prepped with ChloraPrep and draped in sterile fashion. Ultrasound was utilized to identify the malignancy at about the 7 o'clock radian of the left breast. The location within the breast was marked in a grid fashion on top of the skin. I then planned a radial incision and passed a localizing wire through the malignancy in a lateral to medial fashion using the ultrasound guidance. Radial incision was then created after local anesthetic was infiltrated. Dissection was carried through skin and subcutaneous tissue. Flaps were raised under the skin. No other breast tissue was of normal consistency. The breast tissue specifically was relatively friable and sometimes difficult to maintain tissue integrity. I dissected a wide core around the localizing wire in a lateral to medial fashion. I had placed the wire through the posterior aspect of the malignancy and therefore I maintained my dissection behind the wire knowing that I had appropriate posterior margins. The specimen was removed intact. I assessed the specimen immediately after removal and all of the margins appeared to be appropriate around the obvious hypoechoic malignancy except for possibly the inferior margin, which appeared to be closer. I tagged the specimen with sutures for orientation and obtained a specimen mammogram, which revealed that the clip was present within the specimen. I then obtained an additional inferior margin. It was challenging to do this because of the integrity of the breast tissue in the somewhat thin area of tissue in this area. It was removed and marked with sutures for specimen orientation and submitted to pathology. Meticulous hemostasis was obtained within the wound using electrocautery. The wound was closed in layers with 3-0 and 4-0 Monocryl. An additional local anesthetic was infiltrated in the wound during closure. Dermabond was placed externally. There were no complications. The patient tolerated the procedure well and was taken to recovery room in stable condition. Job ID: [id number]
== END 2019-04-21 16:00 | disposition home or self-care (01) ==
LOC: SDC 09:17
PROVIDERS: ATTEND Specialist
PROC: 0HBU3ZX Excision of Left Breast, Percutaneous Approach, Diagnostic (ICD-10-PCS; principal; 2019-04-21)
DX: C50.312 Malignant neoplasm of lower-inner quadrant of left female breast (principal); I10 Essential (primary) hypertension; I25.10 Atherosclerotic heart disease of native coronary artery without angina pectoris; Z17.0 Estrogen receptor positive status [ER+]; Z79.899 Other long term (current) drug therapy; Z88.2 Allergy status to sulfonamides; Z91.041 Radiographic dye allergy status
CPT/HCPCS: 76098; 80048; 85025; 88305; 88307; 93005; 93010; J0690; J1100; J1885; J2001; J2405; J2704; J3010; S0020

== ENCOUNTER 2019-07-05 08:14 | Outpatient (CLI) | payer MEDICARE, OTHER ==
--- NOTE | 2019-07-05 13:37 | PET ---
Radionucleotide PET scan with CT attenuation correction HISTORY: GI stromal tumor. Breast cancer. Restaging. COMPARISON: 02/24/2019. FINDINGS: Physiologic uptake of radiotracer is present throughout the enteric system and along each u rinary tract. The hypermetabolic lesion within the left breast is no longer present. There are now postoperative ch anges. Abnormal activity associated with areas of pleural thickening within the left hemithorax are unchange d in position and distribution. At the left apex max SUV 10.3 (previously 10.3) Left anterolateral cardiophrenic angle max SUV 5.8 (previously 6.1) Left posterior medial pleural angle max SUV 4.7 (previously 5.5). Increased uptake associated with a lobular soft tissue density mass within the anterior left lower qu adrant mesentery shows max SUV 5.4 (previously 5.0). Activity associated with the partially calcified right lower quadrant/central abdominal mass shows max SUV 11.2 (previously 8.8). Degenerative changes of the left hip are apparent. No abnormal uptake is evident on today's exam wher e there was slightly increased uptake on the previous study. IMPRESSION : No change in hypermetabolic activity associated with left pleural disease and lower intra-abdominal d isease. No new abnormalities are evident. Interval surgical resection of the left breast lesion. Degenerative changes of left hip are apparent without residual hypermetabolic activity.
== END 2019-07-05 08:15 | disposition home or self-care (01) ==
LOC: PET 08:14
PROVIDERS: ATTEND Internal Medicine Hematology & Oncology
DX: C49.A0 Gastrointestinal stromal tumor, unspecified site (principal); Z98.890 Other specified postprocedural states
CPT/HCPCS: 78815; A9552

== ENCOUNTER 2019-10-18 09:49 | Outpatient (CLI) | payer MEDICARE, OTHER ==
--- NOTE | 2019-10-18 12:32 | PET ---
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 Breast cancer. COMPARISON: 07/05/2019 TECHNIQUE: PET scan with CT attenuation correction was performed from the base of the brain to the pr oximal thighs following the intravenous administration of 11.9 mm of [id number]. FINDINGS: Head and neck: No abnormal FDG localization CHEST: Redemonstration of left apical pleural hypermetabolic activity. Currently, the maximum SUV is 11.7. Previously, the maximum SUV was 10.3. There is persistent hypermetabolic activity involving the anterior left pleural margin with a maximum SUV of 3.9. Previously, the maximum SUV was 3.9 as we ll. There is consolidation of the lingula with associated hypermetabolic activity. Maximum SUV is 5.9. Previous, the maximum SUV was 5.6. Additional pleural-based hypermetabolic activity is once agai n demonstrated. Along the posterior left pleural margin there is FDG avidity with a maximum SUV of 5.1. Along the lateral left lung base, there is FDG avidity with a maximum SUV of 5.4. Previously, th e FDG avidity in the left lung base was 4.[address] used for attenuation correction redemonstrates loculated fluid along the left major fissure. Small amount of pleural fluid along the posterior left lung base is noted Abdomen pelvis: There is no abnormal FDG avidity in the abdomen. There is a persistent soft tissue ma ss left lower quadrant mesentery with heterogeneous FDG avidity. Maximum SUV is 7.1. Grossly, the maximum SUV was 5.3. CT used for attenuation correction demonstrates mass to measure 6.3 x 5.1 cm. Pr eviously, this mass measured 5.9 x 4.9 cm. There appears be slight interval increase in size. There is also FDG avidity along the right aspect of this mass, currently with a maximum SUV of 10.2. Curren tly, the maximum SUV in this region was 9.8. There is also FDG avidity involving a partially calcified component of this mass. Maximum SUV is 5.6 on the current examination, previously 3.9. Osseous structures: No abnormal FDG localization. IMPRESSION: There is progression of disease. There is increased FDG avidity involving the left pleural margin inc luding the level of the left hemidiaphragm. There is also increased size and increased FDG avidity involving the complex lower abdominal/pelvic mass. Transcribed Date/Time: 10/18/2019 1:33 PM
== END 2019-10-18 09:50 | disposition home or self-care (01) ==
LOC: PET 09:49
PROVIDERS: ATTEND Internal Medicine Hematology & Oncology
DX: C50.312 Malignant neoplasm of lower-inner quadrant of left female breast (principal); C79.89 Secondary malignant neoplasm of other specified sites
CPT/HCPCS: 78815; A9552

== ENCOUNTER 2020-02-03 07:33 | Outpatient (CLI) | payer MEDICARE, OTHER ==
--- NOTE | 2020-02-03 10:19 | PET ---
EXAM: PET/CT HISTORY: History of malignant neoplasm of connective and soft tissue of the abdomen, malignant neoplasm of low er inner quadrant of left female breast TECHNIQUE: PET scanning with CT attenuation correction was performed from the base of the brain to the proximal thighs following the intravenous administration of 10.5 millicuries [id number]. COMPARISON: Prior MRI of the abdomen and pelvis dated September 29, 2018 and a PET/CT dated October 17 FINDINGS: Biodistribution:The biodistribution for the exam appears acceptable. Head and neck: There is appropriate background activity within the brain. No hypermetabolic lymphaden opathy or masses identified. Thorax: The hypermetabolic pleural-based lesions demonstrate mild diffuse increased SUV uptake. One o f the index regions of increased metabolic uptake is seen involving the left lung apex which has a peak SUV value of 10.16 cm and a mean value of 7.94, previously had a peak SUV uptake of 9.32 and a m darrell value of 7.85. Small left pleural effusion remains. No additional hypermetabolic lymph node or mass is seen within the thorax. Abdomen and pelvis: There is expected background activity within the GI and systems. The large hypodense mass involving the left lower quadrant mesentery has increased in size, previousl y measuring 6.3 x 5.1 cm, now measuring 10.6 x 4.7 cm, with a peak SUV value 8.83 mean value of 6.3. This previously had a peak activity of 5.53. There is an additional mass in the right lower quadrant mesentery measuring 6.5 cm, where previously the lesion measured approximately 5.1 cm and has a peak activity of 10.81 and mean activity 7.75. Previous peak activity was 10.22. There is an additional hypodense masslike region within the lower pelvis, compressing the bladder to the right, measuring 8.9 cm in its greatest dimension and having a peak SUV uptake of 6.81. There is a 2.2 cm mass within the lower right hemipelvis, adjacent to the right aspect of the rectum with a peak activity of 6.2 and a mean activity of 3.25. This is enlarged and the prior examination where the lesion measured 1.3 cm. There is worsening hypermetabolic nodularity involving the anterior most omentum, left of midline, wi th a peak SUV activity of 5.78 and a mean activity of 4.84. Previously this nodule was not hypermetabolic on the prior exam and a peak activity 1.48. The nodule appears larger on the current e xam measuring 1.3 cm were previously it measured 6 mm. The margins of the masses detailed above are somewhat obscured due to the unopacified metabolic activ ity of the adjacent small bowel. Osseous structures and skin: No hypermetabolic skin or osseous lesion is identified. IMPRESSION: Abnormal PET/CT. 1. Slight interval worsening of hypermetabolic activity involving the pleural-based metastatic diseas e of the left hemithorax. 2. Enlarging hypermetabolic masses of the lower omentum and pelvis. There is worsening carcinomatosis of the left anterior omentum. 3. Recommend a follow-up CT of the chest, abdomen and pelvis with IV and enteric contrast to better d etailed the size of the lesions. Surrounding unopacified bowel metabolic activity obscures the margins of the intra-abdominal masses.
== END 2020-02-03 07:34 | disposition home or self-care (01) ==
LOC: PET 07:33
PROVIDERS: ATTEND Internal Medicine Hematology & Oncology
DX: C50.919 Malignant neoplasm of unspecified site of unspecified female breast (principal); C78.2 Secondary malignant neoplasm of pleura; R19.00 Intra-abdominal and pelvic swelling, mass and lump, unspecified site; J98.8 Other specified respiratory disorders; N94.89 Other specified conditions associated with female genital organs and menstrual cycle
CPT/HCPCS: 78815; A9552

== ENCOUNTER 2020-05-24 14:47 | Outpatient (CLI) | payer MEDICARE, OTHER | END 2020-05-24 14:48 | disposition home or self-care (01) | LOC: SCSRAD 14:47 | PROVIDERS: ATTEND Internal Medicine Hematology & Oncology | DX: R63.4 Abnormal weight loss (principal); J90 Pleural effusion, not elsewhere classified; C50.312 Malignant neoplasm of lower-inner quadrant of left female breast | CPT/HCPCS: 71046 ==

== ENCOUNTER 2020-06-19 10:25 | Outpatient (CLI) | payer MEDICARE, OTHER | END 2020-06-19 10:26 | disposition home or self-care (01) | LOC: PET 10:25 | PROVIDERS: ATTEND Internal Medicine Hematology & Oncology | DX: C50.312 Malignant neoplasm of lower-inner quadrant of left female breast (principal); K66.8 Other specified disorders of peritoneum | CPT/HCPCS: 78815; A9552 ==

== ENCOUNTER 2020-08-21 08:52 | Outpatient (CLI) | payer MEDICARE, OTHER | END 2020-08-21 08:53 | disposition home or self-care (01) | LOC: PET 08:52 | PROVIDERS: ATTEND Internal Medicine Hematology & Oncology | DX: C50.312 Malignant neoplasm of lower-inner quadrant of left female breast (principal); C78.2 Secondary malignant neoplasm of pleura; D49.0 Neoplasm of unspecified behavior of digestive system; C79.89 Secondary malignant neoplasm of other specified sites | CPT/HCPCS: 78815; A9552 ==

== ENCOUNTER 2020-11-20 08:01 | Outpatient (CLI) | payer MEDICARE, OTHER | END 2020-11-20 08:02 | disposition home or self-care (01) | LOC: PET 08:01 | PROVIDERS: ATTEND Internal Medicine Hematology & Oncology | DX: C49.A0 Gastrointestinal stromal tumor, unspecified site (principal); C50.312 Malignant neoplasm of lower-inner quadrant of left female breast | CPT/HCPCS: 78815; A9552 ==

== ENCOUNTER 2021-02-12 07:50 | Outpatient (CLI) | payer MEDICARE, OTHER | END 2021-02-12 07:51 | disposition home or self-care (01) | LOC: PET 07:50 | PROVIDERS: ATTEND Internal Medicine Hematology & Oncology | DX: C50.312 Malignant neoplasm of lower-inner quadrant of left female breast (principal); C49.4 Malignant neoplasm of connective and soft tissue of abdomen | CPT/HCPCS: 78815; A9552 ==

== ENCOUNTER 2021-02-28 14:36 | Outpatient (CLI) | payer MEDICARE, OTHER ==
[2021-02-28 16:26] LABS: #Eosinphils 0.3 10x3/uL (0.0-0.5); #Monocytes 0.6 10x3/uL (0.0-1.1); #Neutrophils 3.6 10x3/uL (1.5-8.4); %Basophils 0.6 % (0.0-2.0); %Eosinophils 4.1 % (0.0-6.0); %Lymphocytes 30.7 % (18.0-47.0); %Monocytes 9.7 % (0.0-10.0); %Neutrophils 54.6 % (40.0-75.0); Hemoglobin 13.4 g/dL (12.0-15.5); Mean Corpuscular HGB CONC 32.1 g/dL (32.0-36.0); Mean Corpuscular Hemoglobin 30.3 pg (27.0-33.0); Mean Corpuscular Volume 94.3 fl (81.6-98.3); Mean Platelet Volume 9.2 fl (7.4-10.4); Platelet Count 188 10x3/uL (150-450); RBC Distribution Width 14.1 % (11.5-14.5); Red Blood Cell (RBC) Count 4.42 10x6/uL (3.90-5.03); White Blood Cell (WBC) Count 6.5 10x3/uL (3.5-10.5)
[2021-02-28 17:03] LABS: Anion Gap 15 mmol/L (10-20); BUN (Urea Nitrogen) 12 mg/dL (9.8-20.1); Calc. Creatinine Clearance 0 mL/min (70-130); Calcium 9.5 mg/dL (7.8-10.44); Carbon Dioxide 26 mmol/L (23-31); Chloride 104 mmol/L (98-107); Glucose 79 mg/dL (83-110); Potassium 4.9 mmol/L (3.5-5.1); Sodium 140 mmol/L (136-145)
[2021-03-01 08:54] LABS: SARS-CoV-2 PCR by NAA Not Detected (NotDetected)
== END 2021-02-28 14:37 | disposition home or self-care (01) ==
LOC: LABBT 14:36
PROVIDERS: ATTEND Internal Medicine Cardiovascular Disease
DX: Z01.812 Encounter for preprocedural laboratory examination (principal); Z20.822 Contact with and (suspected) exposure to COVID-19
CPT/HCPCS: 80048; 85025; U0003; U0005

== ENCOUNTER → 2021-03-05 | Day surgery (SDC) | payer MEDICARE, OTHER ==
[2021-03-01 14:01] VITALS: BMI 20.6
[~2021-03-05] MED LIST changes: +Fentanyl 100 MCG/2 ML VIAL ONE; +Midazolam HCl 2 mg/2 ml Vial ONE
== END ==
LOC: CCL 05:41
PROVIDERS: ATTEND Internal Medicine Cardiovascular Disease
PROC: 4A023N7 Measurement of Cardiac Sampling and Pressure, Left Heart, Percutaneous Approach (ICD-10-PCS; principal; 2021-03-05)
PROC: B2111ZZ Fluoroscopy of Multiple Coronary Arteries using Low Osmolar Contrast (ICD-10-PCS; 2021-03-05)
DX: I35.0 Nonrheumatic aortic (valve) stenosis (principal); I25.119 Atherosclerotic heart disease of native coronary artery with unspecified angina pectoris; I11.0 Hypertensive heart disease with heart failure; I50.32 Chronic diastolic (congestive) heart failure; E78.00 Pure hypercholesterolemia, unspecified; E78.5 Hyperlipidemia, unspecified; I25.2 Old myocardial infarction; M19.90 Unspecified osteoarthritis, unspecified site; M10.9 Gout, unspecified; I49.1 Atrial premature depolarization; Z79.02 Long term (current) use of antithrombotics/antiplatelets; Z79.899 Other long term (current) drug therapy; Z91.041 Radiographic dye allergy status
CPT/HCPCS: 93456; 99152; 99153; J2250; J3010; Q9967

== ENCOUNTER 2021-08-13 13:30 | Outpatient (CLI) | payer MEDICARE, OTHER | END 2021-08-13 13:31 | LOC: PET 13:30 | PROVIDERS: ATTEND Internal Medicine Hematology & Oncology | DX: C50.312 Malignant neoplasm of lower-inner quadrant of left female breast (principal); C49.4 Malignant neoplasm of connective and soft tissue of abdomen | CPT/HCPCS: 78815; A9552 ==

== ENCOUNTER 2021-11-12 09:30 | Outpatient (CLI) | payer MEDICARE, OTHER | END 2021-11-12 09:31 | disposition home or self-care (01) | LOC: PET 09:30 | PROVIDERS: ATTEND Internal Medicine Hematology & Oncology | DX: C50.312 Malignant neoplasm of lower-inner quadrant of left female breast (principal) | CPT/HCPCS: 78815; A9552 ==

== ENCOUNTER → 2022-01-28 | Outpatient (CLI) | payer MEDICARE, OTHER | LOC: PET 11:45 | PROVIDERS: ATTEND Internal Medicine Hematology & Oncology | DX: C50.312 Malignant neoplasm of lower-inner quadrant of left female breast (principal); R19.00 Intra-abdominal and pelvic swelling, mass and lump, unspecified site | CPT/HCPCS: 78815; A9552 ==

== ENCOUNTER 2022-08-12 09:18 | Outpatient (CLI) | payer MEDICARE, OTHER | END 2022-08-12 09:19 | disposition home or self-care (01) | LOC: BICMAMMO 09:18 | PROVIDERS: ATTEND Internal Medicine Hematology & Oncology | DX: C50.312 Malignant neoplasm of lower-inner quadrant of left female breast (principal) | CPT/HCPCS: 77066; G0279 ==

== ENCOUNTER 2022-12-11 11:45 | Outpatient (CLI) | payer MEDICARE, OTHER | END 2022-12-11 11:46 | disposition home or self-care (01) | LOC: PET 11:45 | PROVIDERS: ATTEND Internal Medicine Hematology & Oncology | DX: C49.4 Malignant neoplasm of connective and soft tissue of abdomen (principal); C50.312 Malignant neoplasm of lower-inner quadrant of left female breast | CPT/HCPCS: 78815; A9552 ==

== ENCOUNTER 2023-02-13 00:18 | Inpatient (IN) | payer MEDICARE, OTHER ==
[2023-02-13] MEDS ORDERED: Morphine 2 MG/ML VIAL SLOW IVP PRN (03:06)
[2023-02-13] MEDS ORDERED: Ipratropium/Albuterol 3 ML NEB NEB PRN (03:06)
[2023-02-13 03:08] VITALS: BMI 22.1
[2023-02-13] MEDS ORDERED: HYDROcodone/Acetaminophen 5/325 mg Tablet PO PRN (03:18)
[2023-02-13] MEDS ORDERED: Furosemide 20 MG/2 ML VIAL SLOW IVP SCH (03:45)
[2023-02-13 03:48] LABS: #Monocytes 0.8 thou/uL (0.11-0.59); #Neutrophils 10.6 thou/uL (1.40-6.50); %Basophils 0.1 % (0.0-1.0); %Lymphocytes 4.6 % (21.0-51.0); %Monocytes 6.7 % (0.0-10.0); %Neutrophils 87.9 % (42.0-75.0); Hematocrit 20.5 % (36.0-47.0); Hemoglobin 6.4 g/dL (12.0-16.0); Mean Corpuscular HGB CONC 31.2 g/dL (32.0-36.0); Mean Corpuscular Hemoglobin 26.6 pg (27.0-31.0); Mean Corpuscular Volume 85.1 fl (78.0-98.0); Mean Platelet Volume 8.7 fL (7.4-10.4); Platelet Count 303 10x3/uL (130-400); RBC Distribution Width 19.7 % (11.5-14.5); Red Blood Cell (RBC) Count 2.41 mill/uL (4.20-5.40); White Blood Cell (WBC) Count 12.1 10x3/uL (4.8-10.8)
[2023-02-13] MEDS ORDERED: Acetaminophen 500 MG TAB PO SCH (04:00)
[2023-02-13] MEDS: Acetaminophen 325 MG TAB PO SCH ×4 (04:06→21:55)
[2023-02-13 04:10] LABS: Anion Gap 17 mmol/L (10-20); BUN (Urea Nitrogen) 23 mg/dL (9.8-20.1); Calc. Creatinine Clearance 29 mL/min (70-130); Calcium 9.1 mg/dL (7.8-10.44); Carbon Dioxide 20 mmol/L (23-31); Chloride 102 mmol/L (98-107); Estimated GFR 42; Glucose 117 mg/dL (83-110); Potassium 5.1 mmol/L (3.5-5.1); Sodium 134 mmol/L (136-145)
[2023-02-13] MEDS: Ondansetron PF 4 MG/2 ML Vial IVP PRN ×2 (04:10→10:38)
[2023-02-13 04:11] LABS: Magnesium 1.9 mg/dL (1.6-2.6)
[2023-02-13 04:16] LABS: ALT (SGPT) 10 U/L (8-55); AST (SGOT) 16 U/L (5-34); Albumin 3.2 g/dL (3.4-4.8); Alkaline Phosphatase 54 U/L (40-110); Bilirubin, Direct 0.2 mg/dL (0.1-0.3); Bilirubin, Total 0.3 mg/dL (0.2-1.2); Protein, Total 5.7 g/dL (5.8-8.1)
[2023-02-13 04:20] LABS: INR-International Normal Ratio 1.2; PTT 25.2 sec (22.9-36.1)
[2023-02-13] MEDS ORDERED: CEFAZOLIN 2 GM in Sodium Chloride 0.9% 100 ML IVPB SCH (07:15)
[2023-02-13 07:55] LABS: Troponin I 0.177 ng/mL (< 0.028)
[2023-02-13] MEDS ORDERED: Ferrous Sulfate 325 MG TAB PO SCH (08:00)
[2023-02-13] MEDS ORDERED: FLU VACC QS2023(65UP)/MF59C/PF 60 MCG/0.5 ML SYRINGE IM ONE (09:00)
[2023-02-13] MEDS ORDERED: Famotidine/PF 20 mg/2ml Vial SLOW IVP SCH (09:00)
[2023-02-13] MEDS ORDERED: Furosemide 40 MG/4 ML VIAL SLOW IVP SCH (09:15)
[2023-02-13] MEDS ORDERED: hydrALAZINE 20 MG/ML VIAL SLOW IVP PRN (09:29)
[2023-02-13] MEDS: Ascorbic Acid 500 mg Chewable Tablet PO SCH ×2 (10:27→21:56)
[2023-02-13 11:01] LABS: Bilirubin Negative (Negative); Blood, Urine Negative (Negative); CAUTI Indications for Culture Alt mental st,lethar; Clarity Turbid (Clear); Glucose, Urine (Dipstick) Normal (Negative); Ketone, Urine Negative (Negative); Leukocyte Negative Leu/uL (Negative); Nitrite Negative (Negative); Protein, Urine (Dipstick) 30 mg/dL (Neg-Trace); RBC/HPF 0-3 HPF (0-3); Specific Gravity, Urine 1.016 (1.002-1.036); Squamous Epithelial 0-3 HPF (0-3); Urobilinogen Normal mg/dL (Less than 2); WBC/HPF 0-3 HPF (0-3)
[2023-02-13 11:02] LABS: Bacteria/HPF Rare-Few HPF (None Seen)
[2023-02-13 11:03] LABS: Urine Culture Reflex No No
[2023-02-13 12:55] LABS: #Monocytes 1.4 thou/uL (0.11-0.59); %Basophils 0.3 % (0.0-1.0); %Eosinophils 0.2 % (0.0-10.0); %Lymphocytes 9.1 % (21.0-51.0); %Monocytes 13.1 % (0.0-10.0); %Neutrophils 76.8 % (42.0-75.0); Hematocrit 26.1 % (36.0-47.0); Hemoglobin 8.4 g/dL (12.0-16.0); Mean Corpuscular HGB CONC 32.2 g/dL (32.0-36.0); Mean Corpuscular Hemoglobin 27.8 pg (27.0-31.0); Mean Corpuscular Volume 86.4 fl (78.0-98.0); Mean Platelet Volume 9.3 fL (7.4-10.4); Platelet Count 277 10x3/uL (130-400); RBC Distribution Width 18.3 % (11.5-14.5); Red Blood Cell (RBC) Count 3.02 mill/uL (4.20-5.40); White Blood Cell (WBC) Count 10.4 10x3/uL (4.8-10.8)
[2023-02-13] MEDS ORDERED: fentaNYL 50 mcg/mL 1 mL Vial SLOW IVP PRN (13:07)
[2023-02-13] MEDS ORDERED: tiZANidine HCl 4 MG TAB PO SCH (13:15)
[2023-02-13] MEDS ORDERED: rOPINIRole HCl 0.25 MG TAB PO SCH (13:15)
[2023-02-13] MEDS: Benzonatate 100 MG CAP PO SCH (21:55)
[2023-02-13] MEDS: Ezetimibe 10 MG TAB PO SCH (21:55)
[2023-02-13] MEDS: Senokot S 8.6-50 MG TAB PO SCH (21:57)
[2023-02-14] MEDS: Acetaminophen 325 MG TAB PO SCH ×5 (02:49→22:17)
[2023-02-14] MEDS: tiZANidine HCl 4 MG TAB PO SCH ×3 (02:49→22:20)
[2023-02-14 07:16] LABS: #Basophils 0.1 thou/uL (0.0-0.2); #Eosinphils 0.2 thou/uL (0.0-0.7); #Monocytes 1.4 thou/uL (0.11-0.59); #Neutrophils 9.1 thou/uL (1.40-6.50); %Basophils 0.4 % (0.0-1.0); %Eosinophils 1.4 % (0.0-10.0); %Lymphocytes 8.4 % (21.0-51.0); %Monocytes 11.9 % (0.0-10.0); %Neutrophils 77.1 % (42.0-75.0); Hematocrit 24.6 % (36.0-47.0); Hemoglobin 7.9 g/dL (12.0-16.0); Mean Corpuscular HGB CONC 32.1 g/dL (32.0-36.0); Mean Corpuscular Hemoglobin 27.9 pg (27.0-31.0); Mean Corpuscular Volume 86.9 fl (78.0-98.0); Mean Platelet Volume 9.2 fL (7.4-10.4); Platelet Count 267 10x3/uL (130-400); RBC Distribution Width 18.3 % (11.5-14.5); Red Blood Cell (RBC) Count 2.83 mill/uL (4.20-5.40); White Blood Cell (WBC) Count 11.8 10x3/uL (4.8-10.8)
[2023-02-14] MEDS ORDERED: CEFAZOLIN 2 GM VIAL ONE (09:04)
[2023-02-14] MEDS ORDERED: Sodium Chloride 0.9% 100 ML ONE ×2 (09:04→09:28)
[2023-02-14] MEDS ORDERED: Ondansetron PF 4 MG/2 ML Vial ONE ×2 (09:05→09:30)
[2023-02-14] MEDS ORDERED: Scopolamine 1 mg/72 hour Patch ONE (09:15)
[2023-02-14] MEDS ORDERED: Dexmedetomidine 200 MCG/2 ML VIAL ONE (09:21)
[2023-02-14] MEDS ORDERED: fentaNYL PF 100 MCG/2 ML SYRINGE ONE (09:26)
[2023-02-14] MEDS ORDERED: PROPOFOL 20 ML ONE (09:26)
[2023-02-14] MEDS ORDERED: Dexamethasone 4 mg/ml Vial ONE (09:30)
[2023-02-14] MEDS ORDERED: SUGAMMADEX SODIUM 200 MG/2 ML VIAL ONE (11:11)
[2023-02-14] MEDS ORDERED: PHENYLEPHRINE-NS 100 MCG/ML 10 ML SYRINGE ONE (11:13)
[2023-02-14] MEDS ORDERED: ePHEDrine Sulfate 50 MG/10 ML VIAL ONE (11:32)
[2023-02-14] MEDS ORDERED: HYDROmorphone 2 MG/ML VIAL SLOW IVP PRN (11:41)
[2023-02-14] MEDS ORDERED: Ondansetron HCl/PF 4 MG/2 ML Vial IVP PRN (11:41)
[2023-02-14] MEDS: Ascorbic Acid 500 mg Chewable Tablet PO SCH ×2 (11:44→22:21)
[2023-02-14] MEDS: Ferrous Sulfate 325 MG TAB PO SCH (11:44)
[2023-02-14] MEDS: Benzonatate 100 MG CAP PO SCH ×2 (11:45→22:20)
[2023-02-14] MEDS: Senokot S 8.6-50 MG TAB PO SCH ×2 (11:45→22:19)
[2023-02-14] MEDS: rOPINIRole HCl 0.25 MG TAB PO SCH (11:45)
[2023-02-14] MEDS ORDERED: fentaNYL 50 mcg/mL 1 mL Vial ONE (12:02)
[2023-02-14 13:20] LABS: #Monocytes 0.6 thou/uL (0.11-0.59); #Neutrophils 12.5 thou/uL (1.40-6.50); %Basophils 0.2 % (0.0-1.0); %Eosinophils 0.1 % (0.0-10.0); %Lymphocytes 2.4 % (21.0-51.0); %Monocytes 4.2 % (0.0-10.0); %Neutrophils 92.2 % (42.0-75.0); Hematocrit 25.6 % (36.0-47.0); Hemoglobin 7.5 g/dL (12.0-16.0); Mean Corpuscular HGB CONC 29.3 g/dL (32.0-36.0); Mean Corpuscular Hemoglobin 27.8 pg (27.0-31.0); Mean Platelet Volume 9.2 fL (7.4-10.4); Platelet Count 243 10x3/uL (130-400); RBC Distribution Width 18.8 % (11.5-14.5); White Blood Cell (WBC) Count 13.5 10x3/uL (4.8-10.8)
[2023-02-14 13:23] LABS: Mean Corpuscular Volume 94.8 fl (78.0-98.0)
[2023-02-14 13:48] LABS: Anion Gap 17 mmol/L (10-20); BUN (Urea Nitrogen) 30 mg/dL (9.8-20.1); Calc. Creatinine Clearance 25 mL/min (70-130); Calcium 8.2 mg/dL (7.8-10.44); Carbon Dioxide 18 mmol/L (23-31); Chloride 101 mmol/L (98-107); Estimated GFR 35; Glucose 112 mg/dL (83-110); Magnesium 1.9 mg/dL (1.6-2.6); Phosphorus 4.5 mg/dL (2.3-4.7); Potassium 4.7 mmol/L (3.5-5.1); Sodium 131 mmol/L (136-145)
[2023-02-14] MEDS ORDERED: Sodium Bicarbonate 150 MEQ in Dextrose 5% in Water 1,000 ML IV SCH (14:00)
[2023-02-14] MEDS: Ondansetron PF 4 MG/2 ML Vial IVP PRN (15:05)
[2023-02-14] MEDS: Sodium Chloride 0.9% 1,000 ML IV SCH (15:22)
[2023-02-14] MEDS: CEFAZOLIN 2 GM in Sodium Chloride 0.9% 100 ML IVPB SCH (16:07)
[2023-02-14] MEDS: HYDROcodone/Acetaminophen 5/325 mg Tablet PO PRN (16:07)
[2023-02-14] MEDS: Metoclopramide HCl 10 MG/2 ML VIAL IVP PRN (20:22)
[2023-02-14] MEDS ORDERED: Ascorbic Acid 500 mg Chewable Tablet PO SCH (21:00)
[2023-02-14] MEDS: Ezetimibe 10 MG TAB PO SCH (22:18)
[2023-02-15] MEDS: Sodium Chloride 0.9% 1,000 ML IV SCH (00:33)
[2023-02-15] MEDS: CEFAZOLIN 2 GM in Sodium Chloride 0.9% 100 ML IVPB SCH ×2 (00:34→08:57)
[2023-02-15] MEDS: Acetaminophen 325 MG TAB PO SCH ×4 (05:07→21:20)
[2023-02-15] MEDS: HYDROcodone/Acetaminophen 5/325 mg Tablet PO PRN (07:09)
[2023-02-15] MEDS: tiZANidine HCl 4 MG TAB PO SCH ×2 (08:55→21:23)
[2023-02-15] MEDS: Senokot S 8.6-50 MG TAB PO SCH ×2 (08:57→21:22)
[2023-02-15] MEDS: Benzonatate 100 MG CAP PO SCH ×2 (08:57→21:22)
[2023-02-15] MEDS: Naloxegol 12.5 MG TAB PO SCH (08:57)
[2023-02-15] MEDS: rOPINIRole HCl 0.25 MG TAB PO SCH (08:57)
[2023-02-15] MEDS: Ascorbic Acid 500 mg Chewable Tablet PO SCH ×2 (08:57→21:23)
[2023-02-15 09:07] LABS: #Monocytes 1.6 thou/uL (0.11-0.59); #Neutrophils 10.5 thou/uL (1.40-6.50); %Basophils 0.1 % (0.0-1.0); %Eosinophils 0.1 % (0.0-10.0); %Lymphocytes 4.7 % (21.0-51.0); %Monocytes 12.2 % (0.0-10.0); %Neutrophils 81.9 % (42.0-75.0); Hemoglobin 6.6 g/dL (12.0-16.0); Mean Corpuscular Hemoglobin 27.6 pg (27.0-31.0); Mean Corpuscular Volume 92.1 fl (78.0-98.0); Mean Platelet Volume 9.3 fL (7.4-10.4); Platelet Count 236 10x3/uL (130-400); RBC Distribution Width 19.1 % (11.5-14.5); Red Blood Cell (RBC) Count 2.39 mill/uL (4.20-5.40); White Blood Cell (WBC) Count 12.8 10x3/uL (4.8-10.8)
[2023-02-15 09:38] LABS: Anion Gap 16 mmol/L (10-20); BUN (Urea Nitrogen) 37 mg/dL (9.8-20.1); Calc. Creatinine Clearance 25 mL/min (70-130); Calcium 7.8 mg/dL (7.8-10.44); Carbon Dioxide 17 mmol/L (23-31); Chloride 102 mmol/L (98-107); Estimated GFR 34; Glucose 109 mg/dL (83-110); Magnesium 1.8 mg/dL (1.6-2.6); Phosphorus 3.9 mg/dL (2.3-4.7); Potassium 4.4 mmol/L (3.5-5.1); Sodium 131 mmol/L (136-145)
[2023-02-15] MEDS ORDERED: Magnesium 2 GM/50 ML(in water) 2 GM in Premix 1 BAG IVPB SCH (10:45)
[2023-02-15] MEDS ORDERED: Sodium Chloride 0.9% 1,000 ML IV SCH (10:45)
[2023-02-15 12:23] LABS: Albumin 2.9 g/dL (3.4-4.8); CK (CPK) 136 U/L (29-168)
[2023-02-15] MEDS: Metoclopramide HCl 10 MG/2 ML VIAL IVP PRN (12:29)
[2023-02-15] MEDS ORDERED: Albumin 25% 25 GM/100 ML BOT IVPB SCH (13:45)
[2023-02-15 14:29] LABS: Creatinine, Urine 137.85 mg/dL (47-110)
[2023-02-15] MEDS ORDERED: Sodium Bicarbonate 150 MEQ in Dextrose 5% in Water 1,000 ML IV SCH (17:00)
[2023-02-15] MEDS: Albumin 25% 25 GM/100 ML BOT IVPB SCH (21:03)
[2023-02-15] MEDS: Ezetimibe 10 MG TAB PO SCH (21:22)
[2023-02-16] MEDS: Albumin 25% 25 GM/100 ML BOT IVPB SCH ×3 (03:05→14:16)
[2023-02-16] MEDS: Acetaminophen 325 MG TAB PO SCH ×4 (03:08→21:45)
[2023-02-16 06:50] LABS: #Eosinphils 0.1 thou/uL (0.0-0.7); #Monocytes 1.4 thou/uL (0.11-0.59); #Neutrophils 7.4 thou/uL (1.40-6.50); %Basophils 0.1 % (0.0-1.0); %Eosinophils 0.9 % (0.0-10.0); %Monocytes 13.9 % (0.0-10.0); %Neutrophils 76.5 % (42.0-75.0); Hematocrit 22.5 % (36.0-47.0); Hemoglobin 7.1 g/dL (12.0-16.0); Mean Corpuscular HGB CONC 31.6 g/dL (32.0-36.0); Mean Corpuscular Hemoglobin 28.5 pg (27.0-31.0); Mean Corpuscular Volume 90.4 fl (78.0-98.0); Mean Platelet Volume 10.3 fL (7.4-10.4); Platelet Count 173 10x3/uL (130-400); RBC Distribution Width 17.4 % (11.5-14.5); Red Blood Cell (RBC) Count 2.49 mill/uL (4.20-5.40); White Blood Cell (WBC) Count 9.7 10x3/uL (4.8-10.8)
[2023-02-16 07:21] LABS: Albumin 3.9 g/dL (3.4-4.8); Anion Gap 18 mmol/L (10-20); BUN (Urea Nitrogen) 41 mg/dL (9.8-20.1); BUN/Creatinine Ratio 25.47; Calc. Creatinine Clearance 23 mL/min (70-130); Calcium 8.3 mg/dL (7.8-10.44); Carbon Dioxide 18 mmol/L (23-31); Chloride 97 mmol/L (98-107); Estimated GFR 32; Glucose 113 mg/dL (83-110); Iron 30 ug/dL (50-170); Iron Binding Capacity, Total 185 mcg/dL (265-497); Magnesium 2.6 mg/dL (1.6-2.6); Phosphorus 3.4 mg/dL (2.3-4.7); Sodium 129 mmol/L (136-145)
[2023-02-16] MEDS ORDERED: Iron, Sodium Ferric Gluconate 250 MG in Sodium Chloride 0.9% 250 ML 250 ML IVPB SCH (07:30)
[2023-02-16] MEDS: HYDROcodone/Acetaminophen 5/325 mg Tablet PO PRN (07:36)
[2023-02-16] MEDS: Ferrous Sulfate 325 MG TAB PO SCH (08:53)
[2023-02-16] MEDS: Naloxegol 12.5 MG TAB PO SCH (08:53)
[2023-02-16] MEDS: Benzonatate 100 MG CAP PO SCH ×2 (08:53→21:42)
[2023-02-16] MEDS: rOPINIRole HCl 0.25 MG TAB PO SCH (08:53)
[2023-02-16] MEDS: tiZANidine HCl 4 MG TAB PO SCH ×2 (08:53→21:47)
[2023-02-16] MEDS: Ascorbic Acid 500 mg Chewable Tablet PO SCH ×2 (08:53→21:48)
[2023-02-16] MEDS: Senokot S 8.6-50 MG TAB PO SCH ×2 (08:54→21:47)
[2023-02-16] MEDS: Sodium Bicarbonate 150 MEQ in Dextrose 5% in Water 1,000 ML IV SCH ×2 (08:55→16:51)
[2023-02-16] MEDS ORDERED: EPOETIN ALFA-EPBX 10,000 UNITS/ML VIAL SC SCH (09:00)
[2023-02-16] MEDS: Bisacodyl 10 MG SUPP PR SCH ×2 (09:28→18:30)
[2023-02-16] MEDS: Lorazepam 0.5 MG TAB PO PRN (16:50)
[2023-02-16] MEDS: Metoclopramide HCl 10 MG/2 ML VIAL IVP PRN (18:41)
[2023-02-16] MEDS: Ezetimibe 10 MG TAB PO SCH (21:45)
[2023-02-16] MEDS: Heparin 5,000 UNITS/ML VIAL SC SCH (21:47)
[2023-02-17] MEDS: Bisacodyl 10 MG SUPP PR SCH ×2 (00:47→11:02)
[2023-02-17] MEDS: Lorazepam 0.5 MG TAB PO PRN (01:00)
[2023-02-17] MEDS ORDERED: Lorazepam 0.5 MG TAB PO SCH (03:00)
[2023-02-17] MEDS ORDERED: Furosemide 40 MG/4 ML VIAL SLOW IVP SCH ×2 (03:00)
[2023-02-17 04:12] VITALS: BP 165/90
[2023-02-17] MEDS: Metoclopramide HCl 10 MG/2 ML VIAL IVP PRN (04:12)
[2023-02-17] MEDS ORDERED: Ondansetron PF 4 MG/2 ML Vial IVP PRN (04:37)
[2023-02-17] MEDS: Acetaminophen 325 MG TAB PO SCH ×3 (04:39→15:10)
[2023-02-17 05:15] LABS: #Monocytes 2.1 thou/uL (0.11-0.59); #Neutrophils 11.1 thou/uL (1.40-6.50); %Basophils 0.1 % (0.0-1.0); %Monocytes 15.1 % (0.0-10.0); %Neutrophils 81.2 % (42.0-75.0); Hematocrit 20.1 % (36.0-47.0); Hemoglobin 6.6 g/dL (12.0-16.0); Mean Corpuscular HGB CONC 32.8 g/dL (32.0-36.0); Mean Corpuscular Hemoglobin 29.6 pg (27.0-31.0); Mean Corpuscular Volume 90.1 fl (78.0-98.0); Mean Platelet Volume 10.2 fL (7.4-10.4); Platelet Count 192 10x3/uL (130-400); RBC Distribution Width 17.9 % (11.5-14.5); Red Blood Cell (RBC) Count 2.23 mill/uL (4.20-5.40); White Blood Cell (WBC) Count 13.6 10x3/uL (4.8-10.8)
[2023-02-17 05:43] LABS: Anion Gap 23 mmol/L (10-20); BUN (Urea Nitrogen) 49 mg/dL (9.8-20.1); Calc. Creatinine Clearance 21 mL/min (70-130); Calcium 8.2 mg/dL (7.8-10.44); Carbon Dioxide 17 mmol/L (23-31); Chloride 92 mmol/L (98-107); Estimated GFR 24; Glucose 128 mg/dL (83-110); Potassium 3.8 mmol/L (3.5-5.1); Sodium 128 mmol/L (136-145)
[2023-02-17] MEDS ORDERED: Furosemide 20 MG TAB PO SCH (09:00)
[2023-02-17] MEDS: Benzonatate 100 MG CAP PO SCH (11:01)
[2023-02-17] MEDS: Ascorbic Acid 500 mg Chewable Tablet PO SCH (11:01)
[2023-02-17] MEDS: Naloxegol 12.5 MG TAB PO SCH (11:02)
[2023-02-17] MEDS: Heparin 5,000 UNITS/ML VIAL SC SCH (11:02)
[2023-02-17] MEDS: Senokot S 8.6-50 MG TAB PO SCH (11:03)
[2023-02-17] MEDS: rOPINIRole HCl 0.25 MG TAB PO SCH (11:03)
[2023-02-17] MEDS: tiZANidine HCl 4 MG TAB PO SCH (11:03)
[2023-02-17] MEDS ORDERED: Phenol 177 ML BOT PO PRN (12:46)
[2023-02-17] MEDS: Morphine 2 MG/ML VIAL SLOW IVP PRN ×2 (12:49→16:00)
[2023-02-17 15:42] VITALS: TEMP 97.5
== END 2023-02-17 16:39 | disposition hospice, inpatient (51) | DRG 521 ==
LOC: SURG B 02:57 → CCU 02-17 03:43 → SURG B 02-17 16:00
PROVIDERS: ADMIT Specialist; ATTEND Specialist
PROC: 30233N1 Transfusion of Nonautologous Red Blood Cells into Peripheral Vein, Percutaneous Approach (ICD-10-PCS; 2023-02-13)
PROC: 0SRR0J9 Replacement of Right Hip Joint, Femoral Surface with Synthetic Substitute, Cemented, Open Approach (ICD-10-PCS; principal; 2023-02-14)
PROC: 3E033XZ Introduction of Vasopressor into Peripheral Vein, Percutaneous Approach (ICD-10-PCS; 2023-02-14)
PROC: 30233J1 Transfusion of Nonautologous Serum Albumin into Peripheral Vein, Percutaneous Approach (ICD-10-PCS; 2023-02-15)
PROC: 5A09357 Assistance with Respiratory Ventilation, Less than 24 Consecutive Hours, Continuous Positive Airway Pressure (ICD-10-PCS; 2023-02-17)
DX: S72.141A Displaced intertrochanteric fracture of right femur, initial encounter for closed fracture (principal); I21.A1 Myocardial infarction type 2; J96.01 Acute respiratory failure with hypoxia; R18.8 Other ascites; C49.A0 Gastrointestinal stromal tumor, unspecified site; N17.9 Acute kidney failure, unspecified; E87.1 Hypo-osmolality and hyponatremia; D62 Acute posthemorrhagic anemia; E87.21 Acute metabolic acidosis; Z66 Do not resuscitate; Z51.5 Encounter for palliative care; I25.10 Atherosclerotic heart disease of native coronary artery without angina pectoris; I35.0 Nonrheumatic aortic (valve) stenosis; M10.9 Gout, unspecified; W19.XXXA Unspecified fall, initial encounter; E78.5 Hyperlipidemia, unspecified; E83.39 Other disorders of phosphorus metabolism; G25.81 Restless legs syndrome; D63.1 Anemia in chronic kidney disease; I50.9 Heart failure, unspecified; I11.0 Hypertensive heart disease with heart failure; Z98.890 Other specified postprocedural states; Z95.2 Presence of prosthetic heart valve; Z90.49 Acquired absence of other specified parts of digestive tract; Z79.899 Other long term (current) drug therapy; Z91.041 Radiographic dye allergy status
CPT/HCPCS: 36415; 36430; 71045; 72170; 76700; 80048; 80069; 80076; 81001; 82570; 82728; 83540; 83550; 83735; 83880; 83930; 84100; 84156; 84300; 84484; 84540; 85025; 86850; 86900; 86901; 93005; 93010; 94640; 94660; C1713; C1776; J1100; J1644; J1940; J2272; J2405; J2704; J2765; J2916; J3010; J3475; J3490; J7050; J7070; J7620; P9016; P9047; Q5106